=== PATIENT | female | born 1935 | race Caucasian/White ===

== ENCOUNTER 2016-05-13 11:32 | Emergency (ER) | payer MEDICARE, BC ==
--- NOTE | 2016-05-13 12:21 | ED ---
General Adult HPI - General Chief complaint: Recheck/Abnormal Lab/Rx Stated complaint: Tia symptoms Time Seen by Provider: 05/13/16 11:49 Source: patient, family, RN notes reviewed Mode of arrival: wheelchair Limitations: no limitations - History of Present Illness Initial comments: This a 80-year-old female presents emergency department with family possible stroke. Patient was at home approximately 30 minutes ago when she was walking, stopped and felt that she cannot walk she began to shake and was very confused. Patient had 2 episodes similar to this. Patient states that she does not remember what happened. Family states that this is exact in symptoms she had prior with her TIA. They're also concerned that she had a recent coiling of brain aneurysm on Sunday. Patient's does have extensive ecchymosis related to hematoma to her left groin and right groin region. Patient also has bruising to her upper extremities from IVs. Patient was taking Plavix aspirin prior. Patient is taking aspirin at this time. Patient denies headache, blurred vision , focal weakness. Patient states she has no complaints at this time. Patient states she has seen Dr. Avilez neurologist in the past. Patient states that her neurosurgeon was Dr. Wade in [place]. Patient states her signal intelligence analyst is Dr. Steinberg. Patient denies any chest pain, palpitations, nausea, vomiting. - Related Data Home Medications Medication Instructions Recorded Confirmed Aspirin EC [Ecotrin] 325 mg PO DAILY 10/25/13 10/25/13 Atorvastatin [Lipitor] 40 mg PO HS 10/25/13 10/26/13 Nitroglycerin Sl Tabs [Nitrostat] 0.4 mg SUBLINGUAL Q5M PRN 10/25/13 10/25/13 Eszopiclone [Lunesta] 2 mg PO HS PRN 10/26/13 10/26/13 Multivitamins, Thera [Multivitamin] 1 tab PO DAILY 10/26/13 10/26/13 Ranitidine HCl [Zantac] 150 mg PO DAILY 10/26/13 10/26/13 Previous Rx's Medication Instructions Recorded Enalapril [Vasotec] 20 mg PO BID #60 tablet 10/28/13 Isosorbide Mononitrate ER [Imdur] 60 mg PO DAILY #30 tab.er.24h 08/26/14 Metoprolol Tartrate [Lopressor] 100 mg PO BID #30 tab 10/28/13 Allergies Allergy/AdvReac Type Severity Reaction Status Date / Time Sulfa (Sulfonamide Allergy Unknown Verified 05/13/16 11:40 Antibiotics) Review of Systems ROS Statement: Those systems with pertinent positive or pertinent negative responses have been documented in the HPI. ROS Other: All systems not noted in ROS Statement are negative. Past Medical History Past Medical History: Coronary Artery Disease (CAD), Hyperlipidemia, Hypertension Additional Past Medical History / Comment(s): "one kidney" kidney stone, lithotripsy History of Any Multi-Drug Resistant Organisms: None Reported Past Surgical History: Breast Surgery, Coronary Bypass/CABG, Tubal Ligation Additional Past Surgical History / Comment(s): aneurysm repair Past Anesthesia/Blood Transfusion Reactions: No Reported Reaction Past Psychological History: No Psychological Hx Reported Smoking Status: Never smoker Past Alcohol Use History: None Reported Past Drug Use History: None Reported - Past Family History Mother Additional Family Medical History / Comment(s): Had mini strokes General Exam Limitations: no limitations General appearance: alert, in no apparent distress Head exam: Present: atraumatic, normocephalic, normal inspection Eye exam: Present: normal appearance, PERRL, EOMI. Absent: scleral icterus, conjunctival injection, periorbital swelling ENT exam: Present: normal exam, normal oropharynx, mucous membranes moist, TM's normal bilaterally, normal external ear exam Neck exam: Present: normal inspection, full ROM. Absent: tenderness, meningismus, lymphadenopathy Respiratory exam: Present: normal lung sounds bilaterally. Absent: respiratory distress, wheezes, rales, rhonchi, stridor Cardiovascular Exam: Present: regular rate, normal rhythm, normal heart sounds. Absent: systolic murmur, diastolic murmur, rubs, gallop, clicks GI/Abdominal exam: Present: soft, normal bowel sounds. Absent: distended, tenderness, guarding, rebound, rigid Extremities exam: Present: normal inspection, full ROM, normal capillary refill , other (Full strength of upper and lower extremity is 5/5 neurovascular intact) . Absent: tenderness, pedal edema, joint swelling, calf tenderness Neurological exam: Present: alert, oriented X3, CN II-XII intact, reflexes normal, other (Finger to nose intact without overshooting, [id number] within normal limits, GCS of 15, NIH scale 0). Absent: motor sensory deficit Skin exam: Present: warm, dry, intact, normal color. 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 Patient has no CVA symptoms at this time. Patient's NIH scale is 0. discussed with Dr. Benjamin at this time. patient is not TPA candidate EKG Findings - EKG Comments: EKG Findings:: EKG performed at 12:33 sinus rhythm with occasional PVC, rate of 69, pedal 162, QRS duration 94, QT/QTC 410/439 Medical Decision Making - Medical Decision Making Case discussed with Dr. Dalton. Patient be admitted this time for observation and evaluation by neurology. - Lab Data Result diagrams: 05/13/16 12:45 05/13/16 12:45 Lab Results 05/13/16 05/13/16 05/13/16 Range/Units 12:45 12:45 12:45 WBC 6.8 (3.8-10.6) k/uL RBC 4.36 (3.80-5.40) m/uL Hgb 13.5 (11.4-16.0) gm/dL Hct 39.1 (34.0-46.0) % MCV 89.6 (80.0-100.0) fL MCH 30.9 (25.0-35.0) pg MCHC 34.4 (31.0-37.0) g/dL RDW 13.8 (11.5-15.5) % Plt Count 237 (150-450) k/uL Neutrophils % 67 % Lymphocytes % 24 % Monocytes % 4 % Eosinophils % 2 % Basophils % 0 % Neutrophils # 4.5 (1.3-7.7) k/uL Lymphocytes # 1.6 (1.0-4.8) k/uL Monocytes # 0.3 (0-1.0) k/uL Eosinophils # 0.1 (0-0.7) k/uL Basophils # 0.0 (0-0.2) k/uL PT (9.0-12.0) sec INR (<1.1) APTT (22.0-30.0) sec Sodium 144 (137-145) mmol/L Potassium 4.1 (3.5-5.1) mmol/L Chloride 112 H (98-107) mmol/L Carbon Dioxide 25 (22-30) mmol/L Anion Gap 7 mmol/L BUN 13 (7-17) mg/dL Creatinine 0.90 (0.52-1.04) mg/dL Est GFR (MDRD) Af Amer >60 (>60 ml/min/1.73 sqM) Est GFR (MDRD) Non-Af >60 (>60 ml/min/1.73 sqM) Glucose 93 (74-99) mg/dL Calcium 8.7 (8.4-10.2) mg/dL Total Bilirubin 1.0 (0.2-1.3) mg/dL AST 20 (14-36) U/L ALT 30 (9-52) U/L Alkaline Phosphatase 96 (38-126) U/L Total Creatine Kinase 72 (30-135) U/L CK-MB (CK-2) 0.5 (0.0-2.4) ng/mL CK-MB (CK-2) Rel Index 0.7 Troponin I <0.012 (0.000-0.034) ng/mL Total Protein 5.8 L (6.3-8.2) g/dL Albumin 3.4 L (3.5-5.0) g/dL 05/13/16 Range/Units 12:45 WBC (3.8-10.6) k/uL RBC (3.80-5.40) m/uL Hgb (11.4-16.0) gm/dL Hct (34.0-46.0) % MCV (80.0-100.0) fL MCH (25.0-35.0) pg MCHC (31.0-37.0) g/dL RDW (11.5-15.5) % Plt Count (150-450) k/uL Neutrophils % % Lymphocytes % % Monocytes % % Eosinophils % % Basophils % % Neutrophils # (1.3-7.7) k/uL Lymphocytes # (1.0-4.8) k/uL Monocytes # (0-1.0) k/uL Eosinophils # (0-0.7) k/uL Basophils # (0-0.2) k/uL PT 10.4 (9.0-12.0) sec INR 1.0 (<1.1) APTT 26.9 (22.0-30.0) sec Sodium (137-145) mmol/L Potassium (3.5-5.1) mmol/L Chloride (98-107) mmol/L Carbon Dioxide (22-30) mmol/L Anion Gap mmol/L BUN (7-17) mg/dL Creatinine (0.52-1.04) mg/dL Est GFR (MDRD) Af Amer (>60 ml/min/1.73 sqM) Est GFR (MDRD) Non-Af (>60 ml/min/1.73 sqM) Glucose (74-99) mg/dL Calcium (8.4-10.2) mg/dL Total Bilirubin (0.2-1.3) mg/dL AST (14-36) U/L ALT (9-52) U/L Alkaline Phosphatase (38-126) U/L Total Creatine Kinase (30-135) U/L CK-MB (CK-2) (0.0-2.4) ng/mL CK-MB (CK-2) Rel Index Troponin I (0.000-0.034) ng/mL Total Protein (6.3-8.2) g/dL Albumin (3.5-5.0) g/dL Disposition Clinical Impression: TIA (transient ischemic attack) Disposition: ADMITTED IP TO THIS HOSP Condition: Fair
--- NOTE | 2016-05-13 12:45 | CT ---
EXAMINATION TYPE: CT brain wo con DATE OF EXAM: 05/13/2016 12:32 PM COMPARISON: 12/04/2011 HISTORY: difficulty walking, post coil for aneurysm on Sunday CT DLP: 1054.2 mGycm Automated exposure control for dose reduction was used. FINDINGS: There is metal artifact from aneurysm clip at the anterior [place]. There is a 1.5 cm area o f hypodensity in the anterior left internal capsule. There is no mass effect nor midline shift. There is no sign of intracranial hemorrhage. The calvarium is intact. IMPRESSION: Previous surgery. Small lacunar infarct left anterior internal capsule. No acute intracranial abnorma lity.
--- NOTE | 2016-05-13 12:46 | XR ---
EXAMINATION TYPE: XR chest 2V DATE OF EXAM: 05/13/2016 12:27 PM COMPARISON: 10/25/2013 HISTORY: Stroke symptoms. Altered mental status. TECHNIQUE: Frontal and lateral views of the chest are obtained. FINDINGS: Heart and mediastinum are normal. Lungs are clear. There are sternal wires. Diaphragm is n ormal. Bony thorax is intact. There are chest leads. IMPRESSION: No cardiopulmonary disease. No change.
[2016-05-13] MEDS ORDERED: cloNIDine HCL 0.1 MG TAB PO STA (12:56)
[2016-05-13 13:08] LABS: Basophils % (A) 0 %; CH 30.9; CHCM 34.7; Eosinophils # (A) 0.1 k/uL (0-0.7); Eosinophils % (A) 2 %; HCT 39.1 % (34.0-46.0); HGB 13.5 gm/dL (11.4-16.0); Luc # (Auto) 0.15; Luc % (Auto) 2; Lymphocytes # (A) 1.6 k/uL (1.0-4.8); Lymphocytes % (A) 24 %; MCH 30.9 pg (25.0-35.0); MCHC 34.4 g/dL (31.0-37.0); MCV 89.6 fL (80.0-100.0); Mean Platelet Volume 7.6; Monocytes # (A) 0.3 k/uL (0-1.0); Monocytes % (A) 4 %; Neutrophils # (A) 4.5 k/uL (1.3-7.7); Neutrophils % (A) 67 %; RBC 4.36 m/uL (3.80-5.40); RDW 13.8 % (11.5-15.5); WBC 6.8 k/uL (3.8-10.6); WBC (Perox) 6.95
[2016-05-13 13:16] LABS: Partial Thromboplastin Time 26.9 sec (22.0-30.0); Prothrombin Time 10.4 sec (9.0-12.0)
[2016-05-13 13:18] LABS: ALT 30 U/L (9-52); AST 20 U/L (14-36); Alkaline Phosphatase 96 U/L (38-126); Anion Gap 7 mmol/L; Blood Urea Nitrogen 13 mg/dL (7-17); Calcium 8.7 mg/dL (8.4-10.2); Carbon Dioxide 25 mmol/L (22-30); Chloride 112 mmol/L (98-107); Glucose 93 mg/dL (74-99); Non-African American GFR(MDRD) >60 (>60 ml/min/1.73 sqM); Potassium 4.1 mmol/L (3.5-5.1); Sodium 144 mmol/L (137-145); Total Protein 5.8 g/dL (6.3-8.2)
[2016-05-13 13:28] LABS: Creatine Kinase 72 U/L (30-135)
[2016-05-13 13:40] LABS: Creatine Kinase MB 0.5 ng/mL (0.0-2.4); Troponin I <0.012 ng/mL (0.000-0.034)
[2016-05-13] MEDS ORDERED: TEMAZEPAM 15 MG CAP PO PRN (13:43)
[2016-05-13 14:04] VITALS: TEMP 98
--- NOTE | 2016-05-13 14:17 | US ---
EXAMINATION TYPE: US carotid duplex BILAT DATE OF EXAM: 05/13/2016 1:44 PM COMPARISON: NONE CLINICAL HISTORY: Stenosis. Pt states right side weakness EXAM MEASUREMENTS: RIGHT: Peak Systolic Velocity (PSV) cm/sec ----- Right CCA: 65.3 ----- Right ICA: 133.9 ----- Right ECA: 167.3 ICA/CCA ratio: 2.0 RIGHT: End Diastole cm/sec ----- Right CCA: 20.0 ----- Right ICA: 38.6 ----- Right ECA: 0.0 LEFT: Peak Systolic Velocity (PSV) cm/sec ----- Left CCA: 77.6 ----- Left ICA: 100.8 ----- Left ECA: 91.0 ICA/CCA ratio: 1.3 LEFT: End Diastole cm/sec ----- Left CCA: 19.1 ----- Left ICA: 32.2 ----- Left ECA: 11.4 VERTEBRALS (direction of flow): Right Vertebral: Antegrade Left Vertebral: Antegrade TECHNOLOGIST IMPRESSION: Heterogeneous plaque and intimal thickening bilaterally with slightly eleva darrion velocities, more on right IMPRESSION: There is antegrade flow in the vertebral arteries. The images and measurements suggest 5 0-70% stenosis in the right internal carotid artery and approximate 25% stenosis in the left internal carotid artery. Criteria for Assigning % of Stenosis / Diameter reduction (Estimation based on the indirect measurements of the internal carotid artery velocities (ICA PSV). 1. Normal (no stenosis)=ICA PSV < 125 cm/s: ratio < 2.0: ICA EDV<40 cm/s. 2. Less than 50% stenosis=ICA PSV < 125 cm/s: ratio < 2.0: ICA EDV<40 cm/s. 3. 50 to 69% stenosis=ICA PSV of 125 to 230 cm/s: ration 2.0 ? 4.0: ICA EDV 40-100 cm/s. 4. Greater than 70% stenosis to near occlusion= ICA PSV > 230 cm/s: ratio > 4.0: ICA EDV > 100 cm/s. 5. Near occlusion= ICA PSV velocities may be low or undetectable: variable ratio and ICA EDV. 6. Total occlusion=unable to detect flow.
--- NOTE | 2016-05-13 15:19 | ED ---
Medical Decision Making - Medical Decision Making After patient was admitted to the hospital and in the emergency room patient develops aphasia at this time. Patient scored NIH scale of 1. Patient's case was discussed with on-call neurosurgeon for Dr. Russell for Dr. Wade. He would like the patient transferred down to [facility]. patient had aspirin prior to arrival not given in ER. Case also discussed with [facility]. ER to ER transfer - Lab Data Result diagrams: 05/13/16 12:45 05/13/16 12:45 Lab Results 05/13/16 05/13/16 05/13/16 Range/Units 12:45 12:45 12:45 WBC 6.8 (3.8-10.6) k/uL RBC 4.36 (3.80-5.40) m/uL Hgb 13.5 (11.4-16.0) gm/dL Hct 39.1 (34.0-46.0) % MCV 89.6 (80.0-100.0) fL MCH 30.9 (25.0-35.0) pg MCHC 34.4 (31.0-37.0) g/dL RDW 13.8 (11.5-15.5) % Plt Count 237 (150-450) k/uL Neutrophils % 67 % Lymphocytes % 24 % Monocytes % 4 % Eosinophils % 2 % Basophils % 0 % Neutrophils # 4.5 (1.3-7.7) k/uL Lymphocytes # 1.6 (1.0-4.8) k/uL Monocytes # 0.3 (0-1.0) k/uL Eosinophils # 0.1 (0-0.7) k/uL Basophils # 0.0 (0-0.2) k/uL PT (9.0-12.0) sec INR (<1.1) APTT (22.0-30.0) sec Sodium 144 (137-145) mmol/L Potassium 4.1 (3.5-5.1) mmol/L Chloride 112 H (98-107) mmol/L Carbon Dioxide 25 (22-30) mmol/L Anion Gap 7 mmol/L BUN 13 (7-17) mg/dL Creatinine 0.90 (0.52-1.04) mg/dL Est GFR (MDRD) Af Amer >60 (>60 ml/min/1.73 sqM) Est GFR (MDRD) Non-Af >60 (>60 ml/min/1.73 sqM) Glucose 93 (74-99) mg/dL Calcium 8.7 (8.4-10.2) mg/dL Total Bilirubin 1.0 (0.2-1.3) mg/dL AST 20 (14-36) U/L ALT 30 (9-52) U/L Alkaline Phosphatase 96 (38-126) U/L Total Creatine Kinase 72 (30-135) U/L CK-MB (CK-2) 0.5 (0.0-2.4) ng/mL CK-MB (CK-2) Rel Index 0.7 Troponin I <0.012 (0.000-0.034) ng/mL Total Protein 5.8 L (6.3-8.2) g/dL Albumin 3.4 L (3.5-5.0) g/dL 05/13/16 Range/Units 12:45 WBC (3.8-10.6) k/uL RBC (3.80-5.40) m/uL Hgb (11.4-16.0) gm/dL Hct (34.0-46.0) % MCV (80.0-100.0) fL MCH (25.0-35.0) pg MCHC (31.0-37.0) g/dL RDW (11.5-15.5) % Plt Count (150-450) k/uL Neutrophils % % Lymphocytes % % Monocytes % % Eosinophils % % Basophils % % Neutrophils # (1.3-7.7) k/uL Lymphocytes # (1.0-4.8) k/uL Monocytes # (0-1.0) k/uL Eosinophils # (0-0.7) k/uL Basophils # (0-0.2) k/uL PT 10.4 (9.0-12.0) sec INR 1.0 (<1.1) APTT 26.9 (22.0-30.0) sec Sodium (137-145) mmol/L Potassium (3.5-5.1) mmol/L Chloride (98-107) mmol/L Carbon Dioxide (22-30) mmol/L Anion Gap mmol/L BUN (7-17) mg/dL Creatinine (0.52-1.04) mg/dL Est GFR (MDRD) Af Amer (>60 ml/min/1.73 sqM) Est GFR (MDRD) Non-Af (>60 ml/min/1.73 sqM) Glucose (74-99) mg/dL Calcium (8.4-10.2) mg/dL Total Bilirubin (0.2-1.3) mg/dL AST (14-36) U/L ALT (9-52) U/L Alkaline Phosphatase (38-126) U/L Total Creatine Kinase (30-135) U/L CK-MB (CK-2) (0.0-2.4) ng/mL CK-MB (CK-2) Rel Index Troponin I (0.000-0.034) ng/mL Total Protein (6.3-8.2) g/dL Albumin (3.5-5.0) g/dL Disposition Clinical Impression: TIA (transient ischemic attack), S/P coil embolization of cerebral aneurysm Disposition: OTHER INSTITUTION NOT DEFINED Condition: Stable - Out of Hospital Transfer - Req. Specs Out of Hospital Transfer - Requested Specifics: Other Emergency Center ([facility])
[2016-05-13 16:12] VITALS: RESP 18
[2016-05-13 16:37] VITALS: BP 148/56; PULSE 64
[2016-05-13] MEDS ORDERED: METOPROLOL TARTRATE 50 MG TAB PO SCH (21:00)
[2016-05-13] MEDS ORDERED: ATORVASTATIN 40 MG TAB PO SCH (21:00)
[2016-05-14] MEDS ORDERED: FAMOTIDINE 20 MG TAB PO SCH (09:00)
[2016-05-14] MEDS ORDERED: LISINOPRIL 20 MG TAB PO SCH (09:00)
[2016-05-14] MEDS ORDERED: ISOSORBIDE MONONITRATE ER 60 MG TAB.ER.24H PO SCH (09:00)
[2016-05-14] MEDS ORDERED: ASPIRIN 325 MG TAB PO SCH (09:00)
== END 2016-05-13 16:25 | disposition short-term general hospital (02) ==
LOC: EC 11:32 → 6SEL 13:42 → UNDOADMIN 13:42 → 6SEL 14:42 → EC 16:25
DX: G45.9 Transient cerebral ischemic attack, unspecified (principal); E78.5 Hyperlipidemia, unspecified; Z95.1 Presence of aortocoronary bypass graft; I25.10 Atherosclerotic heart disease of native coronary artery without angina pectoris; I10 Essential (primary) hypertension; Z98.890 Other specified postprocedural states; Z79.82 Long term (current) use of aspirin; Z79.899 Other long term (current) drug therapy; Z88.2 Allergy status to sulfonamides
CPT/HCPCS: 36415; 70450; 71020; 80053; 82550; 82553; 84484; 85025; 85610; 85730; 93005; 93880; 99285

== ENCOUNTER 2016-05-24 16:26 | Inpatient (IN) | payer MEDICARE, BC ==
--- NOTE | 2016-05-24 17:42 | ED ---
General Adult HPI - General Chief complaint: Neuro Symptoms/Deficit Stated complaint: CVA Symptoms Time Seen by Provider: 05/24/16 16:42 Source: patient Mode of arrival: wheelchair Limitations: no limitations - History of Present Illness Initial comments: This is a 80-year-old female to the ER for evaluation of neurological complaint. Patient has significant recent medical history of TIAs, multiple TIAs in relation to recent coiling of brain aneurysm. Patient had no prior symptoms prior to the brain aneurysm of stroke. She did have coiling done about 3 weeks ago and has had recent loss multiple recent admissions regarding strokelike symptoms. All her for strokelike symptoms have resolved, she has no deficit. Patient was following up with her neurosurgeon today and in the [facility] patient began to have loss of speech, she states she was able to understand in here but she could not get the words out. Patient is on Coumadin and has been taking it as directed also taking aspirin. Currently she has no symptoms, no neurological deficit - Related Data Home Medications Medication Instructions Recorded Confirmed Aspirin EC [Ecotrin] 325 mg PO DAILY@0700 10/25/13 05/24/16 Atorvastatin [Lipitor] 40 mg PO HS 10/25/13 05/24/16 Nitroglycerin Sl Tabs [Nitrostat] 0.4 mg SUBLINGUAL Q5M PRN 10/25/13 05/24/16 Multivitamins, Thera [Multivitamin 1 tab PO DAILY@0700 10/26/13 05/24/16 (formulary)] Ranitidine HCl [Zantac] 150 mg PO DAILY@0700 10/26/13 05/24/16 Ergocalciferol (Vitamin D2) 50,000 unit PO [id number] 05/13/16 05/24/16 [Vitamin D2] Metoprolol Tartrate [Lopressor] 100 mg PO BID@0700,1900 05/13/16 05/24/16 Enalapril [Vasotec] 20 mg PO BID@0700,1900 05/24/16 05/24/16 Eszopiclone [Lunesta] 2 mg PO HS PRN 05/24/16 05/24/16 Isosorbide Mononitrate ER [Imdur] 30 mg PO DAILY@0700 05/24/16 05/24/16 Warfarin [Coumadin] 2.5 mg PO DAILY@1900 05/24/16 05/24/16 Allergies Allergy/AdvReac Type Severity Reaction Status Date / Time Sulfa (Sulfonamide Allergy Rash/Hives Verified 05/24/16 16:56 Antibiotics) Review of Systems ROS Statement: Those systems with pertinent positive or pertinent negative responses have been documented in the HPI. ROS Other: All systems not noted in ROS Statement are negative. Past Medical History Past Medical History: Coronary Artery Disease (CAD), Hyperlipidemia, Hypertension Additional Past Medical History / Comment(s): "one kidney" kidney stone, lithotripsy History of Any Multi-Drug Resistant Organisms: None Reported Past Surgical History: Breast Surgery, Coronary Bypass/CABG, Tubal Ligation Additional Past Surgical History / Comment(s): aneurysm repair Past Anesthesia/Blood Transfusion Reactions: No Reported Reaction Past Psychological History: No Psychological Hx Reported Smoking Status: Never smoker Past Alcohol Use History: None Reported Past Drug Use History: None Reported - Past Family History Mother Additional Family Medical History / Comment(s): Had mini strokes General Exam - General Exam Comments Initial Comments: NIH of 0 Limitations: no limitations General appearance: alert, in no apparent distress Head exam: Present: atraumatic, normocephalic, normal inspection Eye exam: Present: normal appearance, PERRL, EOMI. Absent: scleral icterus, conjunctival injection, periorbital swelling ENT exam: Present: normal exam, mucous membranes moist Neck exam: Present: normal inspection. Absent: tenderness, meningismus, lymphadenopathy Respiratory exam: Present: normal lung sounds bilaterally. Absent: respiratory distress, wheezes, rales, rhonchi, stridor Cardiovascular Exam: Present: regular rate, normal rhythm, normal heart sounds. Absent: systolic murmur, diastolic murmur, rubs, gallop, clicks GI/Abdominal exam: Present: soft, normal bowel sounds. Absent: distended, tenderness, guarding, rebound, rigid Extremities exam: Present: normal inspection, full ROM, normal capillary refill. Absent: tenderness, pedal edema, joint swelling, calf tenderness Back exam: Present: normal inspection Neurological exam: Present: alert, oriented X3, CN II-XII intact Psychiatric exam: Present: normal affect, normal mood Skin exam: Present: warm, dry, intact, normal color. Absent: rash Course Vital Signs 05/24/16 05/24/16 05/24/16 16:38 17:56 18:39 Temperature 97.2 F L Pulse Rate 65 64 65 Respiratory 18 14 14 Rate Blood Pressure 184/76 179/83 172/85 O2 Sat by Pulse 99 96 97 Oximetry 05/24/16 19:17 Temperature 97.7 F Pulse Rate 61 Respiratory 18 Rate Blood Pressure 170/81 O2 Sat by Pulse 96 Oximetry - Reevaluation(s) Reevaluation #1: 05/24/16 19:45 Spoke with patient's neurosurgeon, concern is patient's subtherapeutic INR, after discussion patient will best be admitted here for evaluation and treatment of INR Reevaluation #2: 05/24/16 19:46 Spoke with patient and family, okay for admission Medical Decision Making - Medical Decision Making 72 female here for evaluation of TIA symptoms, patient will be admitted for evaluation and treatment of subtherapeutic INR. - Lab Data Result diagrams: 05/24/16 18:00 05/24/16 18:00 Lab Results 05/24/16 05/24/16 05/24/16 Range/Units 18:00 18:00 18:00 WBC 6.9 (3.8-10.6) k/uL RBC 4.62 (3.80-5.40) m/uL Hgb 13.9 (11.4-16.0) gm/dL Hct 42.9 (34.0-46.0) % MCV 93.0 (80.0-100.0) fL MCH 30.2 (25.0-35.0) pg MCHC 32.5 (31.0-37.0) g/dL RDW 14.7 (11.5-15.5) % Plt Count 350 (150-450) k/uL Neutrophils % 59 % Lymphocytes % 29 % Monocytes % 5 % Eosinophils % 3 % Basophils % 1 % Neutrophils # 4.1 (1.3-7.7) k/uL Lymphocytes # 2.0 (1.0-4.8) k/uL Monocytes # 0.4 (0-1.0) k/uL Eosinophils # 0.2 (0-0.7) k/uL Basophils # 0.0 (0-0.2) k/uL PT (9.0-12.0) sec INR (<1.1) APTT (22.0-30.0) sec Sodium 144 (137-145) mmol/L Potassium 5.2 H (3.5-5.1) mmol/L Chloride 109 H (98-107) mmol/L Carbon Dioxide 27 (22-30) mmol/L Anion Gap 8 mmol/L BUN 19 H (7-17) mg/dL Creatinine 0.95 (0.52-1.04) mg/dL Est GFR (MDRD) Af Amer >60 (>60 ml/min/1.73 sqM) Est GFR (MDRD) Non-Af 57 (>60 ml/min/1.73 sqM) Glucose 93 (74-99) mg/dL Calcium 9.4 (8.4-10.2) mg/dL Magnesium 2.2 (1.6-2.3) mg/dL Total Bilirubin 0.8 (0.2-1.3) mg/dL AST 25 (14-36) U/L ALT 47 (9-52) U/L Alkaline Phosphatase 112 (38-126) U/L Total Creatine Kinase 42 (30-135) U/L CK-MB (CK-2) 0.4 (0.0-2.4) ng/mL CK-MB (CK-2) Rel Index 1.0 Troponin I <0.012 (0.000-0.034) ng/mL Total Protein 6.7 (6.3-8.2) g/dL Albumin 4.0 (3.5-5.0) g/dL 05/24/16 Range/Units 18:00 WBC (3.8-10.6) k/uL RBC (3.80-5.40) m/uL Hgb (11.4-16.0) gm/dL Hct (34.0-46.0) % MCV (80.0-100.0) fL MCH (25.0-35.0) pg MCHC (31.0-37.0) g/dL RDW (11.5-15.5) % Plt Count (150-450) k/uL Neutrophils % % Lymphocytes % % Monocytes % % Eosinophils % % Basophils % % Neutrophils # (1.3-7.7) k/uL Lymphocytes # (1.0-4.8) k/uL Monocytes # (0-1.0) k/uL Eosinophils # (0-0.7) k/uL Basophils # (0-0.2) k/uL PT 15.2 H (9.0-12.0) sec INR 1.6 (<1.1) APTT 32.8 H (22.0-30.0) sec Sodium (137-145) mmol/L Potassium (3.5-5.1) mmol/L Chloride (98-107) mmol/L Carbon Dioxide (22-30) mmol/L Anion Gap mmol/L BUN (7-17) mg/dL Creatinine (0.52-1.04) mg/dL Est GFR (MDRD) Af Amer (>60 ml/min/1.73 sqM) Est GFR (MDRD) Non-Af (>60 ml/min/1.73 sqM) Glucose (74-99) mg/dL Calcium (8.4-10.2) mg/dL Magnesium (1.6-2.3) mg/dL Total Bilirubin (0.2-1.3) mg/dL AST (14-36) U/L ALT (9-52) U/L Alkaline Phosphatase (38-126) U/L Total Creatine Kinase (30-135) U/L CK-MB (CK-2) (0.0-2.4) ng/mL CK-MB (CK-2) Rel Index Troponin I (0.000-0.034) ng/mL Total Protein (6.3-8.2) g/dL Albumin (3.5-5.0) g/dL Disposition Clinical Impression: TIA (transient ischemic attack), Subtherapeutic anticoagulation Disposition: ADMITTED IP TO THIS [facility] Condition: Fair Referrals: Tyrone Martin DO [Primary Care Provider] - 1-2 days
[2016-05-24 18:09] LABS: Basophils % (A) 1 %; CH 30.7; CHCM 33.2; Eosinophils # (A) 0.2 k/uL (0-0.7); Eosinophils % (A) 3 %; HCT 42.9 % (34.0-46.0); HDW 2.74; HGB 13.9 gm/dL (11.4-16.0); Luc # (Auto) 0.24; Luc % (Auto) 4; Lymphocytes % (A) 29 %; MCH 30.2 pg (25.0-35.0); MCHC 32.5 g/dL (31.0-37.0); Mean Platelet Volume 6.6; Monocytes # (A) 0.4 k/uL (0-1.0); Monocytes % (A) 5 %; Neutrophils # (A) 4.1 k/uL (1.3-7.7); Neutrophils % (A) 59 %; RBC 4.62 m/uL (3.80-5.40); RDW 14.7 % (11.5-15.5); WBC 6.9 k/uL (3.8-10.6); WBC (Perox) 7.05
[2016-05-24 18:15] LABS: INR 1.6 (<1.1); Partial Thromboplastin Time 32.8 sec (22.0-30.0); Prothrombin Time 15.2 sec (9.0-12.0)
[2016-05-24 18:19] LABS: ALT 47 U/L (9-52); AST 25 U/L (14-36); Alkaline Phosphatase 112 U/L (38-126); Anion Gap 8 mmol/L; Blood Urea Nitrogen 19 mg/dL (7-17); Calcium 9.4 mg/dL (8.4-10.2); Carbon Dioxide 27 mmol/L (22-30); Chloride 109 mmol/L (98-107); Glucose 93 mg/dL (74-99); Magnesium 2.2 mg/dL (1.6-2.3); Non-African American GFR(MDRD) 57 (>60 ml/min/1.73 sqM); Potassium 5.2 mmol/L (3.5-5.1); Sodium 144 mmol/L (137-145); Total Bilirubin 0.8 mg/dL (0.2-1.3); Total Protein 6.7 g/dL (6.3-8.2)
[2016-05-24 18:30] LABS: Creatine Kinase 42 U/L (30-135)
[2016-05-24 18:43] LABS: Creatine Kinase MB 0.4 ng/mL (0.0-2.4); Troponin I <0.012 ng/mL (0.000-0.034)
[2016-05-24] MEDS ORDERED: SODIUM CHLORIDE 0.9% 1,000 ML IV ONE (19:44)
[2016-05-24] MEDS ORDERED: HEPARIN SODIUM,PORCINE 5,000 UNIT/ML 1 ML VIAL IV PRN (19:44)
[2016-05-24] MEDS ORDERED: HEPARIN SODIUM,PORCINE 5,000 UNIT/ML 1 ML VIAL IV ONE (19:44)
[2016-05-24] MEDS ORDERED: WARFARIN 2 MG TAB PO ONE (20:00)
[2016-05-24] MEDS: HEPARIN SODIUM,PORCINE/D5W PMX 25,000 UNIT in DEXTROSE/WATER 1 500ML.BAG IV SCH (20:01)
[2016-05-24] MEDS ORDERED: WARFARIN 3 MG TAB PO ONE (20:30)
[2016-05-24] MEDS ORDERED: METOPROLOL TARTRATE 50 MG TAB PO STA (20:58)
[2016-05-24] MEDS ORDERED: LISINOPRIL 20 MG TAB PO STA (20:58)
[2016-05-24 23:13] VITALS: BMI 21.4
[2016-05-25 02:34] LABS: Basophils % (A) 1 %; CH 30.7; CHCM 33.2; Eosinophils # (A) 0.2 k/uL (0-0.7); Eosinophils % (A) 3 %; HCT 40.5 % (34.0-46.0); HDW 2.72; HGB 13.4 gm/dL (11.4-16.0); Luc # (Auto) 0.21; Luc % (Auto) 4; Lymphocytes # (A) 2.2 k/uL (1.0-4.8); Lymphocytes % (A) 38 %; MCH 30.7 pg (25.0-35.0); MCV 92.9 fL (80.0-100.0); Mean Platelet Volume 6.5; Monocytes # (A) 0.4 k/uL (0-1.0); Monocytes % (A) 6 %; Neutrophils # (A) 2.9 k/uL (1.3-7.7); Neutrophils % (A) 49 %; RBC 4.36 m/uL (3.80-5.40); RDW 14.7 % (11.5-15.5); WBC 5.9 k/uL (3.8-10.6); WBC (Perox) 6.47
[2016-05-25 05:22] LABS: INR 1.6 (<1.1); Prothrombin Time 15.1 sec (9.0-12.0)
[2016-05-25] MEDS ORDERED: ASPIRIN 325 MG TAB PO SCH (07:00)
[2016-05-25] MEDS ORDERED: LISINOPRIL 20 MG TAB PO SCH (09:00)
[2016-05-25] MEDS ORDERED: METOPROLOL TARTRATE 50 MG TAB PO SCH (09:00)
[2016-05-25] MEDS ORDERED: TEMAZEPAM 15 MG CAP PO PRN (11:47)
[2016-05-25] MEDS ORDERED: NITROGLYCERIN SL TABS 0.4 MG TAB SUBLINGUAL PRN (11:47)
[2016-05-25] MEDS: FAMOTIDINE 20 MG TAB PO SCH (14:19)
[2016-05-25] MEDS: METOPROLOL TARTRATE 50 MG TAB PO SCH ×2 (14:20→20:25)
[2016-05-25] MEDS: LISINOPRIL 20 MG TAB PO SCH ×2 (14:20→20:24)
[2016-05-25] MEDS: ISOSORBIDE MONONITRATE ER 30 MG TAB.ER.24H PO SCH (14:20)
[2016-05-25] MEDS ORDERED: WARFARIN 3 MG TAB PO ONE (18:00)
[2016-05-25] MEDS: WARFARIN 5 MG TAB PO SCH (18:11)
[2016-05-25] MEDS ORDERED: WARFARIN 2.5 MG TAB PO SCH (19:00)
[2016-05-25] MEDS: ATORVASTATIN 40 MG TAB PO SCH (20:25)
[2016-05-25] MEDS: ASPIRIN 81 MG CHEW PO SCH (20:25)
[2016-05-25] MEDS: HEPARIN SODIUM,PORCINE/D5W PMX 25,000 UNIT in DEXTROSE/WATER 1 500ML.BAG IV SCH (20:26)
--- NOTE | 2016-05-25 22:10 | HP ---
DATE OF ADMISSION: 05/24/2016 PRESENTING COMPLAINT: Difficulty in speaking. HISTORY OF PRESENTING COMPLAINT: This is a very pleasant 80-year-old patient of Dr. Martin who does follow up with neurologist Dr. Avilez. Patient has a history of coronary artery disease and also a history of multiple strokes in the past. Patient on 05/09/2016 did undergo a coil placement of brain aneurysm by Dr. Wade out of [place]. Also chronic stable conditions include hyperlipidemia, hypertension. Patient yesterday was talking to her son and she could hear her son, but was not able to formulate words. Also, weakness was noted in the right leg that lasted for a few hours. Speech subsequently came back. Has no change in vision. No headache. No change in the right arm. Patient has had an extensive workup done recently, including MRIs, EEG, carotids. All workup otherwise was negative. Patient was put on Coumadin because of recurrent stroke. INR was found to be low, so the patient was put on IV heparin. REVIEW OF SYSTEMS: CONSTITUTIONAL: None. HEENT: None. RESPIRATORY: None. CARDIOVASCULAR: None. GASTROINTESTINAL: None. GENITOURINARY: None. MUSCULOSKELETAL: None. DERMATOLOGIC: None. HEMATOLOGIC: None. PSYCHIATRY: None. NEUROLOGICAL: As above. Past history of coronary artery disease with stent, stroke, hyperlipidemia, hypertension, brain aneurysm, kidney stone. PAST SURGICAL HISTORY: Breast surgery, coronary bypass, cardiac cath with stent, tubal ligation, aneurysm repair with coil placement 05/09/2016, CABG in 2008, right breast lumpectomy. PSYCH HISTORY: No smoking or alcohol. Family history of mini strokes. HOME MEDICATIONS: 1. Imdur ER 30 mg a day. 2. Coumadin 2.5 mg daily. 3. Zantac 150 mg p.o. daily. 4. Nitrostat 0.4. sublingual q.5 p.r.n. 5. Multivitamin 1 tablet p.o. daily. 6. Lopressor 100 mg p.o. b.i.d. 7. Lunesta 2 mg ( ) q.h.s. 8. Vitamin D2 50,000 units p.o. q.14 days. 9. Vasotec 20 mg p.o. b.i.d. 10. Lipitor 40 mg at bedtime. 11. Aspirin 325 mg p.o. daily. ALLERGIES TO SULFA. On examination, vital signs on presentation: Temperature 97.2, pulse 65, respirations 18, blood pressure 184.76, pulse ox 99% on room air. GENERAL APPEARANCE: Elderly female; sitting up, not in distress. EYES: Pupils equal. Conjunctivae normal. HEENT: Oral cavity normal. NECK: JVD not raised. Mass not palpable. RESPIRATORY: Effort normal. Lungs are clear. CARDIOVASCULAR: First and second sounds normal. No edema. ABDOMEN: Soft, nontender. Liver and spleen not palpable. LYMPHATIC: No lymph nodes palpable in neck or axillae. PSYCHIATRY: Alert and oriented x3. Mood and affect normal. NEUROLOGICAL: Pupils equal. Cranial nerves grossly intact. Power and sensation grossly intact. INVESTIGATIONS: White count 6.9, hemoglobin 13.9, INR 1.6. Potassium 5.2. BUN 19, creatinine 0.95. ASSESSMENT: 1. Transient ischemic attack and strokes in the past for which patient os already on Coumadin and recently had a brain aneurysm with a coil placed on 05/09/2016. 2. Coronary artery disease with prior history of coronary artery bypass and stent. 3. Hyperlipidemia. 4. Essential hypertension. 5. IV heparin monitoring level. PLAN: Care was discussed in detail with the patient and the ( ) at the bedside. Will increase the Coumadin to 5 mg starting tonight, leave the patient on IV heparin. Patient should follow up with Dr. Avilez as an outpatient. Will decrease the aspirin to 81 mg. Questions were answered.
[2016-05-26] MEDS: ISOSORBIDE MONONITRATE ER 30 MG TAB.ER.24H PO SCH (06:43)
[2016-05-26] MEDS: FAMOTIDINE 20 MG TAB PO SCH (06:43)
[2016-05-26] MEDS: LISINOPRIL 20 MG TAB PO SCH ×2 (06:43→18:09)
[2016-05-26] MEDS: MULTIVITAMINS, THERA 1 EACH TAB PO SCH (06:43)
[2016-05-26] MEDS: METOPROLOL TARTRATE 50 MG TAB PO SCH ×2 (06:43→18:09)
[2016-05-26 06:47] LABS: Basophils % (A) 0 %; CHCM 33.4; Eosinophils # (A) 0.2 k/uL (0-0.7); Eosinophils % (A) 4 %; HCT 39.4 % (34.0-46.0); HDW 2.75; HGB 13.3 gm/dL (11.4-16.0); Luc # (Auto) 0.18; Luc % (Auto) 4; Lymphocytes # (A) 1.8 k/uL (1.0-4.8); Lymphocytes % (A) 36 %; MCH 31.5 pg (25.0-35.0); MCHC 33.7 g/dL (31.0-37.0); MCV 93.4 fL (80.0-100.0); Mean Platelet Volume 7.3; Monocytes # (A) 0.3 k/uL (0-1.0); Monocytes % (A) 6 %; Neutrophils # (A) 2.5 k/uL (1.3-7.7); Neutrophils % (A) 50 %; RBC 4.21 m/uL (3.80-5.40); RDW 14.8 % (11.5-15.5); WBC (Perox) 5.08
[2016-05-26 06:57] LABS: INR 1.6 (<1.1); Partial Thromboplastin Time 62.9 sec (22.0-30.0); Prothrombin Time 15.3 sec (9.0-12.0)
[2016-05-26] MEDS: ASPIRIN 81 MG CHEW PO SCH ×2 (10:00→20:05)
[2016-05-26] MEDS ORDERED: ENOXAPARIN 100 MG/ML SYRINGE SQ SCH (10:15)
[2016-05-26] MEDS ORDERED: HEPARIN SODIUM,PORCINE 5,000 UNIT/ML 1 ML VIAL IV PRN (11:04)
[2016-05-26] MEDS: HEPARIN SODIUM,PORCINE/D5W PMX 25,000 UNIT in DEXTROSE/WATER 1 500ML.BAG IV SCH (12:29)
[2016-05-26] MEDS: WARFARIN 5 MG TAB PO SCH (18:09)
[2016-05-26] MEDS: ATORVASTATIN 40 MG TAB PO SCH (20:05)
--- NOTE | 2016-05-26 21:30 | PN ---
DATE OF SERVICE: 05/26/2016 PRESENTING COMPLAINT: TIA. INTERVAL HISTORY: This is a patient with no accessible history with recent coiling of a brain aneurysm. She has presented yet again with TIA symptoms that have resolved. Patient's INR is subtherapeutic at 1.6, and the dose of Coumadin was increased. Patient is on IV heparin. I want the patient to take Lovenox, but she is not willing to do the Lovenox at home and wishes to remain on IV heparin until INR is therapeutic, understanding well that she will have to stay in the hospital for the same. Review of systems done for constitutional, cardiovascular, GI, pulmonary; relevant findings as above. Neurological deficits improved. Current medications are reviewed that include IV heparin and Coumadin. On examination, temperature 97.3, pulse 76, respiration 18, blood pressure 147/62, pulse ox 96% on room air. GENERAL APPEARANCE: Sitting up, comfortable. EYES: Pupils equal. Conjunctivae normal. NECK: JVD not raised. RESPIRATORY: Effort normal. Lungs are clear. CARDIOVASCULAR: First and second sounds normal. No edema. ABDOMEN: Soft, nontender. Liver and spleen not palpable. PSYCHIATRY: Alert and oriented x3. Mood and affect normal. NEUROLOGICAL: No focal deficit. INVESTIGATIONS: INR 1.6. ASSESSMENT: 1. Transient ischemic attack and strokes in the past, for which patient is already on Coumadin. Recently she had a brain aneurysm coil placement on 05/09/16. 2. Coronary artery disease with prior history of coronary artery disease with stent. 3. Hyperlipidemia. 4. Essential hypertension. 5. Intravenous heparin monitoring for therapeutic levels to continue. PLAN: At this point will continue the patient on 5 mg of Coumadin. IV heparin to continue until INR is therapeutic.
[2016-05-26 22:47] VITALS: RESP 18
[2016-05-27] MEDS: METOPROLOL TARTRATE 50 MG TAB PO SCH ×2 (06:32→17:48)
[2016-05-27] MEDS: LISINOPRIL 20 MG TAB PO SCH ×2 (06:32→17:48)
[2016-05-27] MEDS: FAMOTIDINE 20 MG TAB PO SCH (06:32)
[2016-05-27] MEDS: MULTIVITAMINS, THERA 1 EACH TAB PO SCH (06:32)
[2016-05-27] MEDS: ISOSORBIDE MONONITRATE ER 30 MG TAB.ER.24H PO SCH (06:33)
[2016-05-27 07:12] LABS: Basophils % (A) 0 %; CH 30.6; CHCM 33.2; Eosinophils # (A) 0.2 k/uL (0-0.7); Eosinophils % (A) 4 %; HCT 41.1 % (34.0-46.0); HDW 2.63; HGB 13.2 gm/dL (11.4-16.0); INR 1.8 (<1.1); Luc # (Auto) 0.12; Luc % (Auto) 3; Lymphocytes # (A) 1.8 k/uL (1.0-4.8); Lymphocytes % (A) 36 %; MCH 29.7 pg (25.0-35.0); MCHC 32.1 g/dL (31.0-37.0); MCV 92.5 fL (80.0-100.0); Mean Platelet Volume 6.5; Monocytes # (A) 0.3 k/uL (0-1.0); Monocytes % (A) 7 %; Neutrophils # (A) 2.5 k/uL (1.3-7.7); Neutrophils % (A) 51 %; Partial Thromboplastin Time 84.3 sec (22.0-30.0); Prothrombin Time 17.6 sec (9.0-12.0); RBC 4.44 m/uL (3.80-5.40); RDW 14.7 % (11.5-15.5); WBC 4.9 k/uL (3.8-10.6); WBC (Perox) 5.32
[2016-05-27] MEDS: ASPIRIN 81 MG CHEW PO SCH ×2 (09:20→20:47)
[2016-05-27] MEDS: HEPARIN SODIUM,PORCINE/D5W PMX 25,000 UNIT in DEXTROSE/WATER 1 500ML.BAG IV SCH (15:18)
[2016-05-27] MEDS: WARFARIN 5 MG TAB PO SCH (17:48)
--- NOTE | 2016-05-27 17:53 | PN ---
DATE OF SERVICE: 05/27/2016 PRESENTING COMPLAINT: Transient ischemic attack. INTERVAL HISTORY: This is a patient with recent coiling of a brain aneurysm. Presented with TIA and subtherapeutic INR as patient did not want to give herself a Lovenox shot, she is maintained on IV heparin waiting for INR to come up. Otherwise, comfortable. Symptoms resolved. Review of systems done for constitutional got GI, pulmonary; relevant findings as above. Current medications are reviewed that include Coumadin and IV heparin. On examination, temperature 97.7, pulse 60, respirations 16, blood pressure 126/72, pulse ox 94% on room air. GENERAL APPEARANCE: Sitting up, comfortable. EYES: Pupils equal. Conjunctivae normal. NECK: JVD not raised. Mass not palpable. RESPIRATORY: Effort normal. Lungs are clear. CARDIOVASCULAR: First and second sounds normal. No edema. ABDOMEN: Soft, nontender. Liver and not palpable. NEUROLOGICAL: No focal deficit. INVESTIGATIONS: INR 1.8. ASSESSMENT: 1. Transient ischemic attack and strokes in the past. The patient is already on Coumadin and had a brain aneurysm coiled on 05/09/2016 2. Coronary artery disease with prior history of coronary artery disease with stent. 3. Hyperlipidemia. 4. Essential hypertension. 5. IV heparin monitoring for therapeutic levels. PLAN: Care was discussed with the patient and son at the bedside. Continue current dose of Coumadin and IV heparin. Await INR to get therapeutic.
[2016-05-27] MEDS: ATORVASTATIN 40 MG TAB PO SCH (20:47)
[2016-05-28 04:21] VITALS: PULSE 65
[2016-05-28 06:43] LABS: Basophils % (A) 1 %; CH 30.8; CHCM 33.6; Eosinophils # (A) 0.2 k/uL (0-0.7); Eosinophils % (A) 4 %; HGB 13.3 gm/dL (11.4-16.0); Luc # (Auto) 0.18; Luc % (Auto) 4; Lymphocytes # (A) 1.9 k/uL (1.0-4.8); Lymphocytes % (A) 39 %; MCH 31.4 pg (25.0-35.0); MCHC 34.1 g/dL (31.0-37.0); MCV 92.2 fL (80.0-100.0); Mean Platelet Volume 7.4; Monocytes # (A) 0.3 k/uL (0-1.0); Monocytes % (A) 5 %; Neutrophils # (A) 2.4 k/uL (1.3-7.7); Neutrophils % (A) 48 %; RBC 4.23 m/uL (3.80-5.40); RDW 14.6 % (11.5-15.5); WBC 4.9 k/uL (3.8-10.6); WBC (Perox) 5.35
[2016-05-28] MEDS: HEPARIN SODIUM,PORCINE/D5W PMX 25,000 UNIT in DEXTROSE/WATER 1 500ML.BAG IV SCH (06:45)
[2016-05-28] MEDS: FAMOTIDINE 20 MG TAB PO SCH (06:47)
[2016-05-28] MEDS: MULTIVITAMINS, THERA 1 EACH TAB PO SCH (06:47)
[2016-05-28] MEDS: ISOSORBIDE MONONITRATE ER 30 MG TAB.ER.24H PO SCH (06:47)
[2016-05-28] MEDS: METOPROLOL TARTRATE 50 MG TAB PO SCH (06:47)
[2016-05-28] MEDS: LISINOPRIL 20 MG TAB PO SCH (06:48)
[2016-05-28 07:05] LABS: INR 2.2 (<1.1); Partial Thromboplastin Time 61.2 sec (22.0-30.0); Prothrombin Time 20.7 sec (9.0-12.0)
[2016-05-28] MEDS: ASPIRIN 81 MG CHEW PO SCH (07:57)
[2016-05-28 11:59] VITALS: BP 129/66; TEMP 97.5
--- NOTE | 2016-05-29 18:51 | DS ---
DATE OF ADMISSION: 05/24/2016 DATE OF DISCHARGE: 05/28/2016 FINAL DIAGNOSES: 1. Transient ischemic attack. 2. Recent history of brain aneurysm. Coil was placed on 05/09/16. 3. Coronary artery disease with prior history of coronary artery bypass with stent. 4. Hyperlipidemia. 5. Essential hypertension. 6. IV heparin monitoring for therapeutic level. 7. Coumadin monitoring. HOSPITAL COURSE: This is a patient who had an extensive neurological workup, follow with Dr. Avilez; he yet again presented with TIA that resolved. Patient's Coumadin was found to be subtherapeutic. She was started on IV heparin. INR did come up to 2.3 at the time of discharge. Care was discussed in detail with the patient and her daughter. Questions were answered. INR check will be followed up with Dr. Martin's office. On examination, no neuro deficits. DISCHARGE MEDICATIONS: 1. Lipitor 40 mg at bedtime. 2. Nitrostat 0.4 sublingually q.5 p.r.n. 3. Multivitamin 1 tablet p.o. daily. 4. Zantac 150 mg p.o. daily. 5. Vitamin D2 50,000 units p.o. 14 days. 6. Lopressor 100 mg p.o. b.i.d. 7. Vasotec 20 mg b.i.d. 8. Lunesta 2 mg at bedtime. 9. Imdur ER 30 mg a day. 10. Aspirin 81 mg b.i.d. 11. Coumadin 2.5 mg on Sunday, Sunday and Sunday; 5 mg on other days. INR to be checked on 05/31/16. Follow up with Dr. Martin in one week. Follow up with Dr. Avilez in one week. Note that patient had an extensive neuro workup in the past recently at an outside hospital. Hence no further testing was done and all of that did come back negative per the patient. The patient's neuro deficit has completely recovered. DISCHARGE PLANNING: More than 35 minutes.
== END 2016-05-28 14:41 | disposition home health service (06) | DRG 69 ==
LOC: EC 16:26 → 6SEL 19:59
PROVIDERS: ADMIT Hospitalist; ATTEND Hospitalist
DX: G45.9 Transient cerebral ischemic attack, unspecified (principal); I10 Essential (primary) hypertension; E78.5 Hyperlipidemia, unspecified; I25.10 Atherosclerotic heart disease of native coronary artery without angina pectoris; Z79.01 Long term (current) use of anticoagulants; Z79.82 Long term (current) use of aspirin; Z79.899 Other long term (current) drug therapy; Z82.3 Family history of stroke; Z88.2 Allergy status to sulfonamides; Z95.1 Presence of aortocoronary bypass graft; Z95.5 Presence of coronary angioplasty implant and graft
CPT/HCPCS: 36415; 80053; 82550; 82553; 83735; 84484; 85025; 85610; 85730; 96365; 96376; 99285

== ENCOUNTER → 2017-12-21 | Outpatient (CLI) | payer MEDICARE, BC ==
[2017-12-21 11:20] LABS: INR 4.4 (<1.2); Prothrombin Time 39.9 sec (9.0-12.0)
== END | disposition home or self-care (01) ==
LOC: LABWHC1 10:03
PROVIDERS: ATTEND Nurse Practitioner Adult Health
DX: I48.0 Paroxysmal atrial fibrillation (principal)
CPT/HCPCS: 36415; 85610

== ENCOUNTER → 2020-03-23 | Outpatient (CLI) | payer MEDICARE, BC ==
--- NOTE | 2020-03-23 10:17 | MR ---
EXAMINATION TYPE: MR angio head wo con DATE OF EXAM: 03/23/2020 COMPARISON: 11/22/2015 HISTORY: Aneurysm TECHNIQUE: Utilizing 3-D dxde-tm-mnldct intracranial MRA of the [place] was performed. FINDINGS: The vertebrobasilar and carotid systems are patent. There is mild prominence to the basilar artery. There also remains along the posterior margin of the cavernous segment of the left ICA 2.6 mm protube neo suspicious for small aneurysm similar in appearance prior exam. Appears to be posterior cerebra l arteries originating from the anterior cerebral congestion artifact in the region of the anterior c ommunicating artery patient's reported history of previous coiling. Vertebral basilar system again ap pears diminutive in size. IMPRESSION: 1. 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 2. There is a 2.5 mm lobulated structure along the posterior margin of the left cavernous ICA suspici ous for small aneurysm. Previously measured 2 mm. 3. Mild prominence of the tip of the basilar artery without evidence of discrete aneurysm.
== END | disposition home or self-care (01) ==
LOC: RADMRIMAIN 09:07
PROVIDERS: ATTEND Family Medicine
DX: R93.89 Abnormal findings on diagnostic imaging of other specified body structures (principal); I69.311 Memory deficit following cerebral infarction; I69.30 Unspecified sequelae of cerebral infarction; I10 Essential (primary) hypertension; E78.5 Hyperlipidemia, unspecified; I67.1 Cerebral aneurysm, nonruptured
CPT/HCPCS: 70544

== ENCOUNTER → 2020-08-17 | Outpatient (CLI) | payer MEDICARE, BC ==
--- NOTE | 2020-08-17 14:51 | US ---
EXAMINATION TYPE: US kidneys/renal and bladder DATE OF EXAM: 08/17/2020 COMPARISON: NONE CLINICAL HISTORY: N18.3 CKD STAGE 3. EXAM MEASUREMENTS: Right Kidney: 6.9 x 2.5 x 3.1 cm Left Kidney: 10.8 x 5.2 x 4.1 cm Somewhat limited visualization due to overlying bowel gas. Right Kidney: atrophied with cortical thinning Left Kidney: cyst measuring 0.8 x 0.7 x 0.9cm Bladder: wnl There is a 0.9 cm anechoic lesion in the left renal pelvis, likely a peripelvic cyst. The urinary wei dder is underfilled. Cholelithiasis is incidentally noted. IMPRESSION: 1. Right renal atrophy with cortical thinning. 2. Possible left parapelvic cyst. 3. Incidental note of cholelithiasis.
== END | disposition home or self-care (01) ==
LOC: RADUSWWP 13:04
PROVIDERS: ATTEND Internal Medicine Nephrology
DX: N18.30 Chronic kidney disease, stage 3 unspecified (principal); N26.1 Atrophy of kidney (terminal)
CPT/HCPCS: 76770

== ENCOUNTER 2021-01-16 12:47 | Emergency (ER) | payer MEDICARE, BC ==
[2021-01-16 13:22] VITALS: BP 198/102; PULSE 71; RESP 16; TEMP 97
--- NOTE | 2021-01-16 13:49 | ED ---
Fall HPI - General Chief Complaint: Fall Stated Complaint: Fall Time Seen by Provider: 01/16/21 13:20 Source: patient, EMS, RN notes reviewed Mode of arrival: EMS Limitations: no limitations - History of Present Illness Initial Comments: This an 85-year-old female presents emergency Department chief complaint of a fall. Patient was outside with family she went to pull on some brush fell backwards onto her buttocks is a low back discomfort. She was able to get up with help able to ambulate. No head injury no loss conscious. She does have some prior back and right hip pain. Denies any lower extremity symptoms no bowel bladder incontinence or retention. - Related Data Home Medications Medication Instructions Recorded Confirmed Atorvastatin [Lipitor] 40 mg PO HS 10/25/13 05/24/16 Nitroglycerin Sl Tabs [Nitrostat] 0.4 mg SUBLINGUAL Q5M PRN 10/25/13 05/24/16 Multivitamins, Thera [Multivitamin 1 tab PO DAILY@0700 10/26/13 05/24/16 (formulary)] Ranitidine HCl [Zantac] 150 mg PO DAILY@0700 10/26/13 05/24/16 Ergocalciferol (Vitamin D2) 50,000 unit PO [id number] 05/13/16 05/24/16 [Vitamin D2] Metoprolol Tartrate [Lopressor] 100 mg PO BID@0700,1900 05/13/16 05/24/16 Enalapril [Vasotec] 20 mg PO BID@0700,1900 05/24/16 05/24/16 Eszopiclone [Lunesta] 2 mg PO HS PRN 05/24/16 05/24/16 Isosorbide Mononitrate ER [Imdur] 30 mg PO DAILY@0700 05/24/16 05/24/16 Previous Rx's Medication Instructions Recorded Aspirin 81 mg PO BID chew 05/28/16 Warfarin [Coumadin] 2.5 mg PO DIRECTED #0 05/28/16 Allergies Allergy/AdvReac Type Severity Reaction Status Date / Time Sulfa (Sulfonamide Allergy Rash/Hives Verified 05/24/16 16:56 Antibiotics) Review of Systems ROS Statement: Those systems with pertinent positive or pertinent negative responses have been documented in the HPI. ROS Other: All systems not noted in ROS Statement are negative. Past Medical History Past Medical History: Coronary Artery Disease (CAD), CVA/TIA, Hyperlipidemia, Hypertension, Myocardial Infarction ([place]) Additional Past Medical History / Comment(s): "one kidney" kidney stone, lithotripsy 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, CABG 2008, Right Breast lympectomy Past Anesthesia/Blood Transfusion Reactions: No Reported Reaction Date of Last Stent Placement:: 1998 Past Psychological History: No Psychological Hx Reported Smoking Status: Never smoker Past Alcohol Use History: None Reported Past Drug Use History: None Reported - Past Family History Mother Additional Family Medical History / Comment(s): Had mini strokes General Exam Limitations: no limitations General appearance: alert, in no apparent distress Head exam: Present: atraumatic, normocephalic, normal inspection ENT exam: Present: normal exam, mucous membranes moist Neck exam: Present: normal inspection. Absent: tenderness, meningismus, lymphadenopathy Respiratory exam: Present: normal lung sounds bilaterally. Absent: respiratory distress, wheezes, rales, rhonchi, stridor Cardiovascular Exam: Present: regular rate, normal rhythm, normal heart sounds. Absent: systolic murmur, diastolic murmur, rubs, gallop, clicks GI/Abdominal exam: Present: soft, normal bowel sounds. Absent: distended, tenderness, guarding, rebound, rigid Extremities exam: Present: other (Lower extremity strength equal bilaterally neurovascular) Back exam: Present: full ROM, tenderness, paraspinal tenderness. Absent: vertebral tenderness Neurological exam: Present: alert, oriented X3, CN II-XII intact, reflexes normal. Absent: motor sensory deficit Skin exam: Present: warm, dry, intact, normal color. Absent: rash Course Vital Signs 01/16/21 13:06 Temperature 97.0 F L Pulse Rate 71 Respiratory 16 Rate Blood Pressure 198/102 O2 Sat by Pulse 98 Oximetry Medical Decision Making - Medical Decision Making X-rays were reviewed there appears to be a very minimal L1 compression fracture. She has no neurological deficits no neurological symptoms. Patient will follow-up with on-call back surgeon Dr. Simpson return parameters were discussed rediscussed no lifting twisting bending rotation. Disposition Clinical Impression: Fall, Lumbar compression fracture Disposition: HOME SELF-CARE Condition: Stable Instructions (If sedation given, give patient instructions): Vertebral Compression Fracture (ED) Additional Instructions: Please return to the Emergency Department if symptoms worsen or any other concerns. Is patient prescribed a controlled substance at d/c from ED?: No Referrals: Silvia Haley MD [Primary Care Provider] - 1-2 days Criss Smith DO [Doctor of Osteopathic Medicine] - 1-2 days Time of Disposition: 14:32
--- NOTE | 2021-01-16 14:02 | XR ---
EXAMINATION TYPE: XR pelvis AP view DATE OF EXAM: 01/16/2021 COMPARISON: None HISTORY: Fall, pain TECHNIQUE: AP pelvis FINDINGS: Sacroiliac joints and symphysis pubis are normal. No acute fracture or dislocation is evide nt. Femoral heads articulate with the acetabulum. Normal bowel gas is present. IMPRESSION: 1. No acute posttraumatic changes AP pelvis.
--- NOTE | 2021-01-16 14:04 | XR ---
EXAMINATION TYPE: XR lumbosacral spine min 4V DATE OF EXAM: 01/16/2021 COMPARISON: None HISTORY: Fall, pain TECHNIQUE: 5 view lumbar spine FINDINGS: There are 5 lumbar-type vertebral bodies. Pedicles are intact. Facet degenerative changes a re present L2-3 through L5-S1. This appears greater on the left. No spondylolytic defects are evident . Degenerative disc changes are present posteriorly. Some mild diffuse disc space narrowing is presen t L3-4. Mild spondylosis present. Some mild wedge deformity of L1 may be present. Correlate with location of the patient's pain. This c ould be an acute fracture. Remaining vertebral Body heights are preserved. IMPRESSION: 1. There may be a compression deformity of L1. Correlate with the location of the patient's pain. Co nsider CT lumbar spine for additional evaluation. 2. Degenerative disc changes within the lumbar spine.
== END 2021-01-16 15:19 | disposition home or self-care (01) ==
LOC: EC 12:47
DX: S32.000A Wedge compression fracture of unspecified lumbar vertebra, initial encounter for closed fracture (principal); I25.10 Atherosclerotic heart disease of native coronary artery without angina pectoris; I10 Essential (primary) hypertension; I25.2 Old myocardial infarction; E78.5 Hyperlipidemia, unspecified; Z79.82 Long term (current) use of aspirin; Z79.01 Long term (current) use of anticoagulants; Z88.2 Allergy status to sulfonamides; Z86.73 Personal history of transient ischemic attack (TIA), and cerebral infarction without residual deficits; Z87.442 Personal history of urinary calculi; Z95.1 Presence of aortocoronary bypass graft; Z98.51 Tubal ligation status; W01.0XXA Fall on same level from slipping, tripping and stumbling without subsequent striking against object, initial encounter
CPT/HCPCS: 72110; 72170; 99283

== ENCOUNTER → 2021-04-29 | Outpatient (CLI) | payer MEDICARE, BC ==
--- NOTE | 2021-04-29 18:15 | MR ---
EXAMINATION TYPE: MR angio head wo/neck wo/w con DATE OF EXAM: 04/29/2021 COMPARISON: MR angiogram of the brain 03/23/2020, and there are angiogram of the brain and neck 016, carotid Doppler 05/13/2016 HISTORY: 2 year follow up, surveillance aneurysm, carotid stenosis. TECHNIQUE: Time of flight images focusing on the [place] were performed without contrast.. P re- and postmultiplanar multisequence imaging obtained through the neck. 2-D and 3-D postprocessing i maging is performed on an alternate workstation and reviewed. FINDINGS: [place] MRA shows a stable appearance. Persistent origin of the posterior ce rebral arteries is noted bilaterally. There is artifact present at the level of the anterior communic ating artery due to patient's coil placement. The protuberance at the posterior aspect of the interna l carotid artery on the left the cavernous portion is stable and may be due to atheromatous change. The carotid arteries, innominate artery, left and right vertebral arteries are patent. No evident manuel nosis of the proximal internal carotid artery on the left. Carotid bulb shows a stenosis on the right is thought to have progressed in the interval and extends into the proximal internal carotid artery. Stenosis is thought to measure less than 50% diameter reduction by Nascet criteria. IMPRESSION: Postprocedural changes. Proximal right internal carotid artery stenosis as described. Add itional findings above.
== END | disposition home or self-care (01) ==
LOC: RADMRIMAIN 16:21
PROVIDERS: ATTEND Psychiatry & Neurology Neurology
DX: I65.21 Occlusion and stenosis of right carotid artery (principal)
CPT/HCPCS: 70544; 70549; A9585

== ENCOUNTER 2022-08-18 10:11 | Day surgery (SDC) | payer MEDICARE, BC ==
[2022-08-16 15:16] VITALS: BMI 19.8
[~2022-08-18 10:11] MED LIST: ALPRAZolam 0.25 MG TAB PO PRN; ALPRAZolam 0.5 MG TAB PO PRN; ASPIRIN 325 MG TAB PO STA; ATORVASTATIN 80 MG TAB PO STA; HEPARIN SODIUM,PORCINE 10,000 UNIT in SODIUM CHLORIDE 0.9% 1,000 ML IRRIGATION PRN; HEPARIN SODIUM,PORCINE 2,500 UNIT in SODIUM CHLORIDE 0.9% 250 ML IRRIGATION PRN; NITROGLYCERIN SL TABS 0.4 MG TAB SUBLINGUAL PRN
[2022-08-18] MEDS ORDERED: SODIUM CHLORIDE 0.9% 500 ML 500 ML IV ONE ×2 (10:27→16:00)
[2022-08-18 10:58] LABS: Basophils % (A) 0 %; Eosinophils # (A) 0.2 k/uL (0-0.7); Eosinophils % (A) 2 %; HCT 43.8 % (34.0-46.0); HGB 13.9 gm/dL (11.4-16.0); Lymphocytes # (A) 2.4 k/uL (1.0-4.8); Lymphocytes % (A) 33 %; MCH 30.1 pg (25.0-35.0); MCHC 31.8 g/dL (31.0-37.0); MCV 94.9 fL (80.0-100.0); Mean Platelet Volume 7.3; Monocytes # (A) 0.4 k/uL (0-1.0); Monocytes % (A) 5 %; Neutrophils # (A) 4.4 k/uL (1.3-7.7); Neutrophils % (A) 58 %; Platelet Count 249 k/uL (150-450); RBC 4.62 m/uL (3.80-5.40); RDW 13.7 % (11.5-15.5); WBC 7.5 k/uL (3.8-10.6)
[2022-08-18 11:11] LABS: African American GFR (CKD) 61 (>60 ml/min/1.73 sqM); Anion Gap 6 mmol/L; Blood Urea Nitrogen 16 mg/dL (7-17); Carbon Dioxide 31 mmol/L (22-30); Chloride 102 mmol/L (98-107); Glucose 84 mg/dL (74-99); Non-African American GFR(CKD) 53 (>60 ml/min/1.73 sqM); Sodium 139 mmol/L (137-145)
[2022-08-18] MEDS ORDERED: MIDAZOLAM 2 MG/2 ML VIAL IVP ONE (13:13)
[2022-08-18] MEDS ORDERED: LIDOCAINE 1% INJ 10MG/ML (20 ML MDV) SQ ONE (13:14)
[2022-08-18] MEDS ORDERED: IOPAMIDOL-370 100ML BTL INJ ONE (13:31)
[2022-08-18] MEDS ORDERED: RX INFO: IV CONTRAST WAS GIVEN 1 EACH MISC MISCELLANE PRN (13:36)
[2022-08-18] MEDS ORDERED: SODIUM CHLORIDE 0.9% 1,000 ML IV SCH (13:45)
[2022-08-18] MEDS ORDERED: hydrALAZINE HCL 20 MG/ML 1 ML VIAL IVP STA (15:10)
[2022-08-18] MEDS: SODIUM CHLORIDE 0.9% 1,000 ML in EMPTY BAG 1 BAG IV SCH (15:30)
--- NOTE | 2022-08-18 23:16 | P.PCN ---
Date of Procedure: 08/18/22 Operative Findings: Heart catheterization Performing physician Daren LUCAS MD Procedure performed 1. Selective left and right coronary angiogram 2. CROW to LAD angiogram, SVG to ramus angiogram, SVG to LCx angiogram, and SVG to RCA angiogram 3. Left heart catheterization 4. Selective right common femoral artery angiogram and ultrasound-guided access Indication Abnormal myocardial perfusion imaging stress test in this 87-year-old female patient with known CAD and prior bypass surgery who also was found to have high burden PVC on ambulatory monitor Approach Right common femoral artery Complications None Level of sedation Moderate with sedation length of 18 minutes Procedure description After obtaining an informed consent the patient was brought to the cardiac labeling strategist. The right common femoral artery was cannulated using micropuncture technique, the micropuncture wire passed easily the nipple is a 6 [place] sheath. I did selective right and left coronary angiogram using JL4 and JR4 catheters. The coronary bypasses angiogram was performed using the JR4 catheter. Left heart catheterization was performed using pigtail catheter. The procedure was completed was no complication Selective coronary angiogram and coronary bypasses angiogram The left main is calcified with moderate disease. The LCx appears to have severe disease The LAD appears to have also severe disease The RCA appeared to be occluded The CROW to LAD is patent The SVG to ramus intermedius is patent The SVG to LCx is patent The SVG to RCA is patent Hemodynamic The LVEDP was 12 mmHg was no significant gradient across aortic valve Conclusion Severe triple-vessel CAD Patent CROW to LAD Patent SVG to ramus intermedius Patent SVG to LCx Patent SVG to RCA Postprocedure management Medical treatment Follow-up the patient
[2022-08-19] MEDS: SODIUM CHLORIDE 0.9% 1,000 ML in EMPTY BAG 1 BAG IV SCH (05:14)
[2022-08-19 07:36] VITALS: BP 149/72; PULSE 75; RESP 16; TEMP 98
--- NOTE | 2022-08-19 09:58 | P.DS ---
Providers Attending physician: Daren Cosme Primary care physician: [facility] Course: The patient is a pleasant 87-year-old female patient was underwent yesterday heart catheterization and was found to have severe triple-vessel CAD with the patency of all bypasses. She was seen this morning. She is asymptomatic and now she is hemodynamically stable. From a cardiovascular standpoint of view, the patient potentially can be discharged home and follow-up with Dr. Brooks as an outpatient Plan - Discharge Summary Discharge Rx Participant: Yes New Discharge Prescriptions: Continue Nitroglycerin Sl Tabs [Nitrostat] 0.4 mg SUBLINGUAL Q5M PRN PRN Reason: Chest Pain Atorvastatin [Lipitor] 40 mg PO HS@1999 Multivitamins, Thera [Multivitamin (formulary)] 1 tab PO DAILY@08 Metoprolol Tartrate [Lopressor] 100 mg PO BID@799,1999 Ergocalciferol (Vitamin D2) [Vitamin D2] 50,000 unit PO MO@08 Enalapril [Vasotec] 20 mg PO BID@799,1999 Levodopa [Inbrija] 100 mg PO DAILY Vit C/E/Zn/Coppr/Lutein/Zeaxan [Preservision Areds 2 Softgel] 1 cap PO BID@799,1999 Aspirin 81 mg PO DAILY@0800 Levothyroxine Sodium [Synthroid] 25 mcg PO DAILY@0700 Discontinued Apixaban [Eliquis] 2.5 mg PO BID Discharge Medication List Atorvastatin [Lipitor] 40 mg PO HS@199910/25/13 [History] Nitroglycerin Sl Tabs [Nitrostat] 0.4 mg SUBLINGUAL Q5M PRN 10/25/13 [History] Multivitamins, Thera [Multivitamin (formulary)] 1 tab PO DAILY@0800 10/26/13 [History] Ergocalciferol (Vitamin D2) [Vitamin D2] 50,000 unit PO MO@0800 05/13/16 [History] Metoprolol Tartrate [Lopressor] 100 mg PO BID@799,199905/13/16 [History] Enalapril [Vasotec] 20 mg PO BID@08,199905/24/16 [History] Aspirin 81 mg PO DAILY@0800 01/16/21 [History] Levothyroxine Sodium [Synthroid] 25 mcg PO DAILY@0700 01/16/21 [History] Vit C/E/Zn/Coppr/Lutein/Zeaxan [Preservision Areds 2 Softgel] 1 cap PO BID@01/16/21 [History] Levodopa [Inbrija] 100 mg PO DAILY 08/17/22 [History] Follow up Appointment(s)/Referral(s): Shan Brooks MD [STAFF PHYSICIAN] - 1 Week (THE OFFICE WILL CALL YOU WITH AN APPOINTMENT DATE AND TIME) Patient Instructions/Handouts: Moderate Sedation (ED), Left Heart Catheterization (DC) Activity/Diet/Wound Care/Special Instructions: *NO LIFTING, PUSHING, OR PULLING ANYTHING OVER 5 POUNDS FOR 5 DAYS *NO DRIVING FOR 3 DAYS *YOU CAN REMOVE YOUR DRESSING AND SHOWER TOMORROW BUT DO NOT SUBMERSE YOUR PUNCTURE SITE IN WATER FOR A FEW DAYS TO PREVENT INFECTION - SO NO TUB BATHS, POOLS, HOT TUBS, DISHES...ETC *ANY SIGNS OF BLEEDING (HARDNESS, SWELLING, OR EXCESSIVE BRUISING) HOLD DIRECT PRESSURE ON YOUR PUNCTURE SITE AND COME TO THE NEAREST EMERGENCY ROOM TO GET YOUR PUNCTURE SITE LOOKED AT - DO NOT DRIVE YOURSELF! EITHER CALL EMS OR HAVE SOMEONE DRIVE YOU!
== END 2022-08-19 10:50 | disposition home or self-care (01) ==
LOC: CATHCVL 10:11 → 6NMEDSUR 13:32 → CATHCVL 08-19 10:50
PROVIDERS: ATTEND Internal Medicine Interventional Cardiology
DX: I25.10 Atherosclerotic heart disease of native coronary artery without angina pectoris (principal); Z95.1 Presence of aortocoronary bypass graft; I49.3 Ventricular premature depolarization; I10 Essential (primary) hypertension; E78.5 Hyperlipidemia, unspecified; I65.23 Occlusion and stenosis of bilateral carotid arteries; I48.0 Paroxysmal atrial fibrillation; G20 Parkinson's disease; E03.9 Hypothyroidism, unspecified; Z79.82 Long term (current) use of aspirin; Z79.01 Long term (current) use of anticoagulants; Z79.899 Other long term (current) drug therapy; Z86.73 Personal history of transient ischemic attack (TIA), and cerebral infarction without residual deficits; Z88.0 Allergy status to penicillin; Z88.2 Allergy status to sulfonamides; Z88.8 Allergy status to other drugs, medicaments and biological substances; Z79.890 Hormone replacement therapy
CPT/HCPCS: 93459; 76937; 80048; 85025; 99152; C1769 ×2; C1894 ×2; J2250; J0360; J2001; Q9967

== ENCOUNTER 2023-07-21 09:14 | Emergency (ER) | payer MEDICARE, BC ==
[2023-07-21 09:35] VITALS: RESP 18; TEMP 98
--- NOTE | 2023-07-21 11:09 | CT ---
EXAMINATION TYPE: CT brain cspine wo con CT DLP: 1028.3 mGycm, Automated exposure control for dose reduction was used. DATE OF EXAM: 07/21/2023 10:17 AM COMPARISON: None. CLINICAL INDICATION:Female, 87 years old with history of Fall, head injury; pain after fall and smash ed face. bruising to eyes and nose area TECHNIQUE: Brain: Multiple axial CT images of the brain were obtained without IV contrast. Cspine: Axial CT images from the skull base to the inferior aspect of T2 we obtained without intraven ous contrast. Coronal and sagittal reformatted images were also reviewed. FINDINGS: Brain: Extra-axial spaces: No abnormal extra-axial fluid collections. Basal cisterns are patent. Artifacts f rom probable aneurysm clip in the supraclinoid region limits evaluation of surrounding structures. Ventricular system: Appear dilated in proportion to the degree of cerebral atrophy. Cerebral parenchyma: No increased attenuation to suggest acute intraparenchymal hemorrhage. The gra y-white matter interface appears maintained. Moderate generalized brain atrophy. Scattered hypoatte nuating areas are seen within the cerebral white matter, nonspecific but most often seen with chronic microvascular ischemic changes; moderate in degree. Cerebellum: No acute abnormality. Mass effect: No evidence of mass effect or midline shift. Intracranial vasculature: Atherosclerotic calcifications of the larger arteries near the skull base. Soft tissues: Normal. Visualized orbits: Orbital contents appear grossly intact. Calvarium/osseous structures: No evidence of calvarial fracture. Paranasal sinuses and mastoid air cells: Clear. MRI is more sensitive for detecting acute processes such as infarct, and may be considered if clinica lly warranted. Cervical spine: Fracture: None seen. Osseous structures, spinal canal/neural foramina: Generalized osteopenia. No definite destructive bon e lesion. There is a nonspecific 1 cm sclerotic density in the T3 vertebral body. Moderate diffuse de generative changes without critical canal or foraminal stenosis. There is generally mild to moderate degenerative disc disease throughout the cervical spine, most prominently at C4-C5 where there is mil d retrolisthesis of C4 on C5 and didz-rm-wacylkff canal and neural foraminal stenoses. Similar findin g C5-C6. Vertebral alignment: Mild degenerative retrolisthesis C4 on C5. No traumatic malalignment is seen. St raightening mild reversal of the normal cervical lordosis, can be seen with degenerative changes, catalina n, positioning, muscular spasm. Neck soft tissues: No acute finding.. Arterial vascular calcifications. Other: Lung apices show no acute infiltrate or pneumothorax. IMPRESSION: CT head: 1. No acute intracranial CT abnormality. CT cervical spine: 1. No evidence of acute cervical spine fracture or traumatic malalignment. 2. Moderate cervical spondylosis.
--- NOTE | 2023-07-21 11:18 | ED ---
Fall HPI - General Chief Complaint: Fall Stated Complaint: Fell facial injury Time Seen by Provider: 07/21/23 09:22 Source: patient, family, RN notes reviewed Mode of arrival: ambulatory Limitations: no limitations - History of Present Illness Initial Comments: This is an 87-year-old female who presents to the emergency department for a fall. Patient states that 1 to 2 days ago she tripped in her room and fell face forward, hitting her head on a plastic tub. Denies any loss of consciousness. She does take Eliquis for coronary artery disease. Denies sustaining any other injuries. She does have a fair amount of bruising to the face, prompting her family to bring her into the emergency department for evaluation. Denies any substantial headaches associated with this and she also denies any nausea, vomiting, or dizziness. MD Complaint: fall - Related Data Home Medications Medication Instructions Recorded Confirmed Atorvastatin [Lipitor] 40 mg PO HS@199910/25/13 08/18/22 Nitroglycerin Sl Tabs [Nitrostat] 0.4 mg SUBLINGUAL Q5M PRN 10/25/13 08/17/22 Multivitamins, Thera [Multivitamin 1 tab PO DAILY@0800 10/26/13 08/18/22 (formulary)] Ergocalciferol (Vitamin D2) 50,000 unit PO MO@0800 05/13/16 08/18/22 [Vitamin D2] Metoprolol Tartrate [Lopressor] 100 mg PO BID@0800,199905/13/16 08/18/22 Enalapril [Vasotec] 20 mg PO BID@0800,199905/24/16 08/18/22 Aspirin 81 mg PO DAILY@0800 01/16/21 08/18/22 Levothyroxine Sodium [Synthroid] 25 mcg PO DAILY@0700 01/16/21 08/18/22 Vit C/E/Zn/Coppr/Lutein/Zeaxan 1 cap PO BID@0800,199901/16/21 08/18/22 [Preservision Areds 2 Softgel] Levodopa [Inbrija] 100 mg PO DAILY 08/17/22 08/18/22 Allergies Allergy/AdvReac Type Severity Reaction Status Date / Time Sulfa (Sulfonamide Allergy Rash/Hives Verified 07/21/23 09:20 Antibiotics) Review of Systems ROS Statement: Those systems with pertinent positive or pertinent negative responses have been documented in the HPI. ROS Other: All systems not noted in ROS Statement are negative. Past Medical History Past Medical History: Coronary Artery Disease (CAD), CVA/TIA, Hyperlipidemia, Hypertension, Myocardial Infarction (NM) Additional Past Medical History / Comment(s): "one kidney" kidney stone, lithotripsy, abnormal stress test. ? irregular heart rate. 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, CABG 2008, Right Breast lympectomy Past Anesthesia/Blood Transfusion Reactions: No Reported Reaction Date of Last Stent Placement:: 1998 Past Psychological History: No Psychological Hx Reported Smoking Status: Never smoker Past Alcohol Use History: None Reported Past Drug Use History: None Reported - Past Family History Mother Additional Family Medical History / Comment(s): Had mini strokes General Exam Limitations: no limitations General appearance: alert, in no apparent distress Head exam: Present: other (Periorbital ecchymosis and ecchymosis to the nasal bridge and bilateral cheeks.) Eye exam: Present: normal appearance, PERRL, EOMI. Absent: scleral icterus, conjunctival injection, periorbital swelling ENT exam: Present: other (No septal hematoma) Respiratory exam: Present: normal lung sounds bilaterally. Absent: respiratory distress, wheezes, rales, rhonchi, stridor Cardiovascular Exam: Present: regular rate, normal rhythm, normal heart sounds. Absent: systolic murmur, diastolic murmur, rubs, gallop, clicks Neurological exam: Present: alert, oriented X3, CN II-XII intact Psychiatric exam: Present: normal affect, normal mood Skin exam: Present: warm, dry, intact, normal color. Absent: rash Course Vital Signs 07/21/23 07/21/23 09:17 11:47 Temperature 98 F 98 F Pulse Rate 60 57 L Respiratory 18 18 Rate Blood Pressure 157/52 187/81 O2 Sat by Pulse 98 99 Oximetry Medical Decision Making - Medical Decision Making This is an 87-year-old female who presents to the emergency department for a fall. Was pt. sent in by a medical professional or institution? @ -No Did you speak to anyone other than the patient for history? @ -No Did you review nursing and triage notes? @ -Yes, and I agree, it is accurate with regards to the patient's symptoms. Were old charts reviewed? @ -No Differential Diagnosis? @ -Differential Diagnosis Head Injury: Contusion, hematoma, intracranial hemorrhage, skull fracture, whiplash, concussion, this is not meant to be an all-inclusive list. EKG interpreted by me (3pts min.)? @ -Not obtained X-rays interpreted by me (1pt min.)? @ -Not obtained CT interpreted by me (1pt min.)? @ -Computed tomography scan of the brain and c-spine obtained. My interpretation identifies no evidence of an acute intracranial hemorrhage, skull fracture, or cervical spine fracture. CT scan of the facial bones obtained. My interpretation identifies no evidence of any facial fractures. U/S interpreted by me (1pt. min.)? @ -Not obtained What testing was considered but not performed? (CT, X-rays, U/S, labs)? Why? @ -None What meds were considered but not given? Why? @ -None Did you discuss the management of the patient with other professionals? @ -No Did you reconcile home meds? @ -No Was smoking cessation discussed for >3mins.? @ -No Was critical care preformed (if so, how long)? @ -No Were there social determinants of health that impacted care today? How? (Homelessness, low income, unemployed, alcoholism, drug addiction, transportation, low edu. Level, literacy, decrease access to med. care, alf, rehab)? @ -No Was there de-escalation of care discussed even if they declined? (Discuss DNR or withdrawal of care, Hospice)? @ -No What co-morbidities impacted this encounter? (DM, HTN, Smoking, COPD, CAD, Cancer, CVA, Hep., AIDS, mental health diagnosis, sleep apnea, morbid obesity)? @ -CAD Was patient admitted / discharged? @ -Discharged. CT scan of the brain/C-spine and facial bones obtained revealing no acute process. She did have a fair amount of bruising to the face but was essentially asymptomatic. Advised Tylenol as needed for discomfort. We also discussed using ambulation aids such as a walker or cane if needed to reduce the risk of falls in the future. Patient discharged home in stable condition. Undiagnosed new problem with uncertain prognosis? @ -None Drug Therapy requiring intensive monitoring for toxicity (Heparin, Nitro, Insulin, Cardizem)? @ -None Were any procedures done? @ -None Diagnosis/symptom? @ -Fall, head injury Acute, or Chronic, or Acute on Chronic? @ -Acute Uncomplicated (without systemic symptoms) or Complicated (systemic symptoms)? @ -Uncomplicated Side effects of treatment? @ -None Exacerbation, Progression, or Severe Exacerbation] @ -Not applicable Poses a threat to life or bodily function? @ -No Return precautions reviewed in depth, the patient is instructed to return to the emergency department with any new, worsening, or concerning symptoms. Patient verbalized understanding. This case was discussed in detail with the attending ED physician, Dr. Leung. Presentation, findings, and treatment plan discussed in detail as well. - Radiology Data Radiology results: report reviewed, image reviewed Disposition Clinical Impression: Fall, Head injury Disposition: HOME SELF-CARE Instructions (If sedation given, give patient instructions): Fall Prevention for Older Adults (ED) Additional Instructions: Return to the emergency department with any new, worsening, or concerning symptoms. Take Tylenol as needed for pain relief. Follow up with your primary care provider in 1-2 days. Is patient prescribed a controlled substance at d/c from ED?: No Referrals: Silvia Haley MD [Primary Care Provider] - 1-2 days Time of Disposition: 11:46
--- NOTE | 2023-07-21 11:18 | CT ---
EXAMINATION TYPE: CT facial bones wo con CT DLP: 1028.3 mGycm, Automated exposure control for dose reduction was used. DATE OF EXAM: 07/21/2023 10:17 AM COMPARISON: . CLINICAL INDICATION:Female, 87 years old with history of Fall, head injury; PHH, pain after fall and smashed face. bruising to eyes and nose area TECHNIQUE: Multiple unenhanced axial CT images were obtained of the facial bones soft tissue and bone windows. Coronal, axial and sagittal reformatted images were also provided in soft tissue and bone windows and submitted for interpretation. Additional 3-D reformatted images were obtained on a [employer] workstation. FINDINGS: There is generalized osteopenia. There is no evidence of fracture, subluxation, or dislocation. Mild soft tissue swelling with small hematoma formation over the forehead. The orbital contents are unrema rkable. There appears to have been prior lens surgery bilaterally. The temporal-mandibular joints daniela ear symmetric. The visualized portion of the paranasal sinuses appear clear. Arteriovascular calcifications noted in the neck. Radiodensity in the supraclinoid region could be an eurysm clip or coil mass. IMPRESSION: No acute facial bone fracture.
[2023-07-21 12:02] VITALS: BP 187/81; PULSE 57
== END 2023-07-21 12:22 | disposition home or self-care (01) ==
LOC: EC 09:14
DX: S00.83XA Contusion of other part of head, initial encounter (principal); I25.10 Atherosclerotic heart disease of native coronary artery without angina pectoris; Z86.73 Personal history of transient ischemic attack (TIA), and cerebral infarction without residual deficits; Z88.2 Allergy status to sulfonamides; Z95.1 Presence of aortocoronary bypass graft; W01.0XXA Fall on same level from slipping, tripping and stumbling without subsequent striking against object, initial encounter
CPT/HCPCS: 70450; 70486; 72125; 99284

== ENCOUNTER 2023-08-26 23:15 | Emergency (ER) | payer MEDICARE, BC ==
--- NOTE | 2023-08-26 23:42 | ED ---
General Adult HPI - General Source: RN notes reviewed <Jef Pettit - Last Filed: 08/26/23 23:43> - General Source: RN notes reviewed, old records reviewed Limitations: no limitations - History of Present Illness -: hour(s) Severity scale (1-10): 3 Consistency: constant Improves with: none Worsens with: none Associated Symptoms: denies other symptoms Treatments Prior to Arrival: none <Avinash Addison - Last Filed: 09/07/23 22:06> - General Stated complaint: Fall, left arm injury Time Seen by Provider: 08/26/23 23:35 - History of Present Illness Initial comments: Quick note 88-year-old female presenting to the ED with a chief complaint of fall. Patient states that she was going down the stairs when she lost her balance and she fell onto her buttocks. States that she scraped her left arm on the way down and now has a small wound to it. Patient is on blood thinners however denies head injury. Has been ambulatory since the fall. (Jef Pettit) This is a 88-year-old female to the ER with fall fall from standing history of Parkinson's left elbow pain and bruising. Patient is on blood thinners and does have significant hematoma of the left elbow but has no complaints no injuries no headache chest pain shortness breath or abdominal pains and states fall was mechanical in nature due to weakness Parkinson's admits to (Avinash Addison) - Related Data Home Medications Medication Instructions Recorded Confirmed Atorvastatin [Lipitor] 40 mg PO HS@199910/25/13 08/18/22 Nitroglycerin Sl Tabs [Nitrostat] 0.4 mg SUBLINGUAL Q5M PRN 10/25/13 08/17/22 Multivitamins, Thera [Multivitamin 1 tab PO DAILY@0800 10/26/13 08/18/22 (formulary)] Ergocalciferol (Vitamin D2) 50,000 unit PO MO@0800 05/13/16 08/18/22 [Vitamin D2] Metoprolol Tartrate [Lopressor] 100 mg PO BID@08,199905/13/16 08/18/22 Enalapril [Vasotec] 20 mg PO BID@0800,199905/24/16 08/18/22 Aspirin 81 mg PO DAILY@0800 01/16/21 08/18/22 Levothyroxine Sodium [Synthroid] 25 mcg PO DAILY@0700 01/16/21 08/18/22 Vit C/E/Zn/Coppr/Lutein/Zeaxan 1 cap PO BID@0800,199901/16/21 08/18/22 [Preservision Areds 2 Softgel] Levodopa [Inbrija] 100 mg PO DAILY 08/17/22 08/18/22 Allergies Allergy/AdvReac Type Severity Reaction Status Date / Time Sulfa (Sulfonamide Allergy Rash/Hives Verified 08/27/23 00:27 Antibiotics) Review of Systems ROS Other: All systems not noted in ROS Statement are negative. <Jef Pettit - Last Filed: 08/26/23 23:43> ROS Other: All systems not noted in ROS Statement are negative. <Avinash Addison - Last Filed: 09/07/23 22:06> ROS Statement: Those systems with pertinent positive or pertinent negative responses have been documented in the HPI. Past Medical History Past Medical History: Coronary Artery Disease (CAD), CVA/TIA, Hyperlipidemia, Hypertension, Myocardial Infarction (PA) Additional Past Medical History / Comment(s): "one kidney" kidney stone, lithotripsy, abnormal stress test. ? irregular heart rate. 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, CABG 2008, Right Breast lympectomy Past Anesthesia/Blood Transfusion Reactions: No Reported Reaction Date of Last Stent Placement:: 1998 Past Psychological History: No Psychological Hx Reported Smoking Status: Never smoker Past Alcohol Use History: None Reported Past Drug Use History: None Reported - Past Family History Mother Additional Family Medical History / Comment(s): Had mini strokes <Jef Pettit - Last Filed: 08/26/23 23:43> General Exam <Jef Pettit - Last Filed: 08/26/23 23:43> General appearance: alert, in no apparent distress Head exam: Present: atraumatic, normocephalic, normal inspection Eye exam: Present: normal appearance, PERRL, EOMI. Absent: scleral icterus, conjunctival injection, periorbital swelling ENT exam: Present: normal exam, mucous membranes moist Neck exam: Present: normal inspection. Absent: tenderness, meningismus, ly mphadenopathy Respiratory exam: Present: normal lung sounds bilaterally. Absent: respiratory distress, wheezes, rales, rhonchi, stridor Cardiovascular Exam: Present: regular rate, normal rhythm, normal heart sounds. Absent: systolic murmur, diastolic murmur, rubs, gallop, clicks GI/Abdominal exam: Present: soft, normal bowel sounds. Absent: distended, tenderness, guarding, rebound, rigid Extremities exam: Present: normal inspection, full ROM, normal capillary refill. Absent: tenderness, pedal edema, joint swelling, calf tenderness Back exam: Present: normal inspection Neurological exam: Present: alert, oriented X3, CN II-XII intact Psychiatric exam: Present: normal affect, normal mood Skin exam: Present: warm, dry, intact, normal color. Absent: rash <Avinash Addison - Last Filed: 09/07/23 22:06> - General Exam Comments Initial Comments: Visual Physical Exam Vital signs reviewed General: Well-appearing, nontoxic, no acute distress. Head: Normocephalic, atraumatic Eyes: PERRLA, EOMI ENT: Airway patent Chest: Nonlabored breathing Skin: No visual rash, normal skin tone Neuro: Alert and oriented 3 Musculoskeletal: No gross abnormalities (Cabatu,Jef) Course <Avinash Addison - Last Filed: 09/07/23 22:06> Vital Signs 08/27/23 08/27/23 08/27/23 00:17 01:35 02:47 Temperature 97.5 F L Pulse Rate 51 L 56 L 55 L Respiratory 16 18 18 Rate Blood Pressure 198/71 124/102 136/108 O2 Sat by Pulse 97 97 97 Oximetry - Reevaluation(s) Reevaluation #1: 08/27/23 01:35 Medical records reviewed (Avinash Addison) Reevaluation #2: 08/27/23 01:35 Patient has no significant complaints here in the ER (Avinash Addison) Reevaluation #3: 08/27/23 01:35 Patient informed of results and questions answered (Tramaine Addisonophmarissa Medina) Reevaluation #4: Was pt. sent in by a medical professional or institution (, ABDOULAYE, POCKET AND PULLEY MACHINE OPERATOR, urgent care, hospital, or [place] health care facility...) When possible be specific @ -no Did you speak to anyone other than the patient for history (EMS, parent, family, police, friend...)? What history was obtained from this source @ -no Did you review nursing and triage notes (agree or disagree)? Why? @ -agree Are old charts reviewed (outside hosp., previous admission, EMS record, old EKG, old radiological studies, urgent care reports/EKG's, [place] health [facility] facility records)? Report findings @ -yes Differential Diagnosis (chest pain, altered mental status, abdominal pain women, abdominal pain men, vaginal bleeding, weakness, fever, dyspnea, syncope, headache, dizziness, GI bleed, back pain, seizure, CVA, palpatations, mental health, musculoskeletal)? @ -prior EKG interpreted by me (3pts min.). @ -yes X-rays interpreted by me (1pt min.). @ -yes negative for acute disease CT interpreted by me (1pt min.). @ -no U/S interpreted by me (1pt. min.). @ -no What testing was considered but not performed or refused? (CT, X-rays, U/S, labs)? Why? @ -none What meds were considered but not given or refused? Why? @ -none Did you discuss the management of the patient with other professionals (professionals i.e. , ABDOULAYE, POCKET AND PULLEY MACHINE OPERATOR, lab, RT, psych nurse, social media assistant, relay record clerk, teacher, flight deck officer, case packer and sealer)? Give summary @ -no Was smoking cessation discussed for >3mins.? @ -no Was critical care preformed (if so, how long)? @ -no Were there social determinants of health that impacted care today? How? (Homelessness, low income, unemployed, alcoholism, drug addiction, transportation, low edu. Level, literacy, decrease access to med. care, custodial, rehab)? @ -none Was there de-escalation of care discussed even if they declined (Discuss DNR or withdrawal of care, Hospice)? DNR status @ -no What co-morbidities impacted this encounter? (DM, HTN, Smoking, COPD, CAD, Cancer, CVA, ARF, Chemo, Hep., AIDS, mental health diagnosis, sleep apnea, morbid obesity)? @ -none Was patient admitted / discharged? Hospital course, mention meds given and route, prescriptions, significant lab abnormalities, going to OR and other pertinent info. @ - 88 female to ER with Parkinson related fall. Patient does have hematoma of the left elbow no significant distress and does not appear to be rapidly expanding. Normal x-ray and patient can be discharged home Discharge Undiagnosed new problem with uncertain prognosis? @ -no Drug Therapy requiring intensive monitoring for toxicity (Heparin, Nitro, Insulin, Cardizem)? @ -no Were any procedures done? @ -no Diagnosis/symptom? @ -Left elbow pain and hematoma Acute, or Chronic, or Acute on Chronic? @ -Acute Uncomplicated (without systemic symptoms) or Complicated (systemic symptoms)? @ -Complicated Side effects of treatment? @ -no Exacerbation, Progression, or Severe Exacerbation? @ -exacerbation Poses a threat to life or bodily function? How? (Chest pain, USA, PA, pneumonia, PE, COPD, DKA, ARF, appy, cholecystitis, CVA, Diverticulitis, Homicidal, Suicidal, threat to staff... and all critical care pts) @ -yes extremes of age (Avinash Addison) EKG Findings - EKG Comments: EKG Findings:: EKG is sinus bradycardia 51 IN 182 QRS 118 QTc 449 - EKG Results: EKG: interpreted by ERMD <Avinash Addison - Last Filed: 09/07/23 22:06> Medical Decision Making <Jef Pettit - Last Filed: 08/26/23 23:43> - Lab Data Result diagrams: 08/27/23 00:39 08/27/23 00:39 - EKG Data -: EKG Interpreted by Ga - Radiology Data Radiology results: report reviewed (X-ray left elbow was negative for traumatic injury), image reviewed <Avinash Addison - Last Filed: 09/07/23 22:06> - Medical Decision Making Quicknote portion performed. Signed Jef Pettit PA-C (Jef Pettit) 88 female to ER with Parkinson related fall. Patient does have hematoma of the left elbow no significant distress and does not appear to be rapidly expanding. Normal x-ray and patient can be discharged home (Avinash Addison) - Lab Data Lab Results 08/27/23 08/27/23 Range/Units 00:39 00:39 WBC 7.8 (3.8-10.6) k/uL RBC 4.20 (3.80-5.40) m/uL Hgb 12.7 (11.4-16.0) gm/dL Hct 40.4 (34.0-46.0) % MCV 96.4 (80.0-100.0) fL MCH 30.4 (25.0-35.0) pg MCHC 31.5 (31.0-37.0) g/dL RDW 15.6 H (11.5-15.5) % Plt Count 246 (150-450) k/uL MPV 7.9 Neutrophils % 65 % Lymphocytes % 25 % Monocytes % 7 % Eosinophils % 2 % Basophils % 0 % Neutrophils # 5.1 (1.3-7.7) k/uL Lymphocytes # 1.9 (1.0-4.8) k/uL Monocytes # 0.5 (0-1.0) k/uL Eosinophils # 0.1 (0-0.7) k/uL Basophils # 0.0 (0-0.2) k/uL Sodium 140 (137-145) mmol/L Potassium 3.2 L (3.5-5.1) mmol/L Chloride 106 (98-107) mmol/L Carbon Dioxide 27 (22-30) mmol/L Anion Gap 7 mmol/L BUN 21 H (7-17) mg/dL Creatinine 0.97 (0.52-1.04) mg/dL Est GFR (CKD-EPI)AfAm 61 (>60 ml/min/1.73 sqM) Est GFR (CKD-EPI)NonAf 53 (>60 ml/min/1.73 sqM) Glucose 88 (74-99) mg/dL Calcium 8.9 (8.4-10.2) mg/dL Phosphorus 3.1 (2.5-4.5) mg/dL Magnesium 2.0 (1.6-2.3) mg/dL Total Bilirubin 0.9 (0.2-1.3) mg/dL AST 132 H (14-36) U/L ALT 134 H (4-34) U/L Alkaline Phosphatase 176 H (38-126) U/L Total Protein 6.2 L (6.3-8.2) g/dL Albumin 3.8 (3.5-5.0) g/dL Disposition <Jef Pettit - Last Filed: 08/26/23 23:43> Is patient prescribed a controlled substance at d/c from ED?: No Time of Disposition: 01:30 <Avinash Addison - Last Filed: 09/07/23 22:06> Clinical Impression: Hematoma of left elbow Disposition: HOME SELF-CARE Condition: Good Instructions (If sedation given, give patient instructions): Hematoma (ED) Referrals: Silvia Haley MD [Primary Care Provider] - 1-2 days
[2023-08-27 00:27] VITALS: TEMP 97.5
[2023-08-27] MEDS: DIPH,PERTUS(ACELL)TETVAC-LF 0.5 ML VIAL IM ONE (00:54)
[2023-08-27 01:31] LABS: Basophils % (A) 0 %; Eosinophils # (A) 0.1 k/uL (0-0.7); Eosinophils % (A) 2 %; HCT 40.4 % (34.0-46.0); HGB 12.7 gm/dL (11.4-16.0); Lymphocytes # (A) 1.9 k/uL (1.0-4.8); Lymphocytes % (A) 25 %; MCH 30.4 pg (25.0-35.0); MCHC 31.5 g/dL (31.0-37.0); MCV 96.4 fL (80.0-100.0); Mean Platelet Volume 7.9; Monocytes # (A) 0.5 k/uL (0-1.0); Monocytes % (A) 7 %; Neutrophils # (A) 5.1 k/uL (1.3-7.7); Neutrophils % (A) 65 %; Platelet Count 246 k/uL (150-450); RDW 15.6 % (11.5-15.5); WBC 7.8 k/uL (3.8-10.6)
[2023-08-27] MEDS: hydrALAZINE HCL 20 MG/ML 1 ML VIAL IVP STA (01:35)
[2023-08-27] MEDS: SODIUM CHLORIDE 0.9% 500 ML 500 ML IV STA (01:39)
[2023-08-27 01:44] VITALS: RESP 18
[2023-08-27 01:45] LABS: ALT 134 U/L (4-34); AST 132 U/L (14-36); African American GFR (CKD) 61 (>60 ml/min/1.73 sqM); Albumin 3.8 g/dL (3.5-5.0); Alkaline Phosphatase 176 U/L (38-126); Anion Gap 7 mmol/L; Blood Urea Nitrogen 21 mg/dL (7-17); Calcium 8.9 mg/dL (8.4-10.2); Carbon Dioxide 27 mmol/L (22-30); Chloride 106 mmol/L (98-107); Glucose 88 mg/dL (74-99); Non-African American GFR(CKD) 53 (>60 ml/min/1.73 sqM); Phosphorus 3.1 mg/dL (2.5-4.5); Potassium 3.2 mmol/L (3.5-5.1); Sodium 140 mmol/L (137-145); Total Bilirubin 0.9 mg/dL (0.2-1.3); Total Protein 6.2 g/dL (6.3-8.2)
[2023-08-27 02:49] VITALS: BP 136/108; PULSE 55
--- NOTE | 2023-08-27 17:25 | XR ---
ADDENDUM - Added by Spencer Posada MD on 08/27/2023 4:05 AM (-04:00) EXAM: XR Left Elbow, 3 Views TECHNIQUE: Frontal, oblique, and lateral views of the left elbow. EXAM: XR Left Elbow, 2 Views CLINICAL HISTORY: Pt arrives to ED for c/o L arm pain. pt fell on stairs approx 1999. did not hit head. no LOC. + blood thinners. TECHNIQUE: Frontal and lateral views of the left elbow. COMPARISON: No relevant prior studies available. FINDINGS: Bones/joints: Unremarkable. No fracture or subluxation. Soft tissues: Dorsal soft tissue swelling of the proximal forearm. IMPRESSION: 1. No fracture or subluxation. 2. Dorsal soft tissue swelling of the proximal forearm.
== END 2023-08-27 02:49 | disposition home or self-care (01) ==
LOC: EC 23:15
DX: S50.02XA Contusion of left elbow, initial encounter (principal); R00.1 Bradycardia, unspecified; Z88.2 Allergy status to sulfonamides; Z23 Encounter for immunization; W10.9XXA Fall (on) (from) unspecified stairs and steps, initial encounter
CPT/HCPCS: 36415; 80053; 83735; 84100; 85025; 73080; 90715; 99284; 90471; 96374; J0360